=== PATIENT | female | born 1975 | race Two or more races ===

== ENCOUNTER 2017-12-13 14:22 | Emergency (ER) | payer MEDICAID ==
[~2017-12-13] VITALS: Ht 167.6 cm; Wt 104.8 kg
[~2017-12-13 14:22] MED LIST: ACET-3017 PO; ALPR-429 PO; AMOX-362 PO; AMOX-559 PO; AMOX500T10 PO; BISM262O24 PO; GABA-549 PO; HYDR-385 PO; HYDR-4309 PO; IBUP-1671 PO; LISI20TA29 PO; LOPE2CAP15; LOR5/325 PO; METF-420 PO; METR-1 PO; OMEP-125 PO; ONDA4TAB97 PO; OXYC-373 PO; PANT40TA65 PO; PARO-243 PO; SUCR1TAB85 PO; SULF-198 PO; TETR-30 PO; TRAM-420 PO; ZOLP-350 PO; [UNRECOGNIZED DRUG - CODE] PO
[2017-12-13] MEDS ORDERED: FLUO-202 PO (14:28)
[2017-12-13 14:29] VITALS: BP 126/68
--- NOTE | 2017-12-13 15:03 | ER Report ---
History and Physical Time Seen By MD: 14:35 Hx. of Stated Complaint: POSSIBLE STAPH INFECTION UNDER LEFT ARM. PREVIOUS SKIN INFECTIONS ON BREAST AND LABIA. HPI/ROS CHIEF COMPLAINT: Abscess HISTORY OF PRESENT ILLNESS: This is a 42-year-old female who presents to the emergency department for an abscess. Patient states that about 2 days ago she noticed she was developing a bump in her left armpit. The left axilla is very painful red and has a "pustule on top" patient states she's had abscesses in the past and this feels very similar to what she's had in the past patient is here for evaluation and I&D of the abscess. Patient denies aches, chills, fevers , nausea, vomiting or diarrhea. REVIEW OF SYSTEMS: Respiratory: No cough, no dyspnea. Cardiovascular: No chest pain, no palpitations. Gastrointestinal: No vomiting, no abdominal pain. Musculoskeletal: No back pain. Integumentary: As above. Allergies: Coded Allergies: No Known Drug Allergies (Unverified , 12/13/17) Home Meds Active Scripts Hydrocodone Bit/Acetaminophen (NORCO 5-325 TABLET) 1 Each Tablet, 1 EACH PO Q4- 6H Y for PAIN, #10 TAB Prov:NELDA MONROE ELIGIBILITY CONSULTANT-BC 12/13/17 Sulfamethoxazole/Trimet 800-160 Mg Tab (BACTRIM DS TABLET) 1 Each Tablet, 1 TAB PO Q12H for 10 Days, #20 TAB Prov:NELDA MONROE ELIGIBILITY CONSULTANT-BC 12/13/17 Pantoprazole Sodium (PANTOPRAZOLE SODIUM) 40 Mg Tablet.dr, 40 MG PO QDAY for 30 Days, #30 TAB.SR Prov:JOSÉ LUIS RODRIGUEZ MD 06/09/17 Alprazolam (XANAX) 0.5 Mg Tablet, 1 TAB PO TID for swelling, #12 TAB 0 Refills Prov:JOSÉ LUIS RODRIGUEZ MD 04/06/17 Reported Medications Fluoxetine Hcl (PROZAC) 20 Mg Capsule, 30 MG PO QDAY, CAPSULE 12/13/17 Metformin Hcl (METFORMIN HCL) 1,000 Mg Tablet, 1 TAB PO BID, TAB 04/17/17 Discontinued Scripts Acetaminophen With Codeine # 3 (TYLENOL WITH CODEINE #3 TABLET) 1 Each Tablet, 1 EACH PO Q4H Y for PAIN, #8 TAB 0 Refills Prov:ROB VIDAL MD 10/03/17 Sulfamethoxazole/Trimet 800-160 Mg Tab (BACTRIM DS TABLET) 1 Each Tablet, 1 TAB PO Q12H for 7 Days, #14 TAB 0 Refills Prov:ROB VIDAL MD 10/03/17 Ondansetron Hcl (ZOFRAN) 4 Mg Tablet, 4 MG PO Q8H for Nausea, #15 TAB 0 Refills Prov:JOSÉ LUIS RODRIGUEZ MD 06/09/17 Past Medical/Surgical History Patient has a past medical and surgical history of hypertension, ulcers, H. pylori, diabetes type II, multiple MRSA infections, anxiety, partial hysterectomy, appendectomy. Reviewed Nurses Notes: Yes Smoking Status: Former Smoker Hx Substance Use Disorder: No Hx Alcohol Use: No Constitutional Vital Sign - Last 24 Hours 12/13/17 14:29 Temp 98.4 Pulse 90 Resp 12 B/P (MAP) 126/68 Pulse Ox 95 O2 Delivery Room Air Physical Exam General Appearance: The patient is alert, has no immediate need for airway protection and no current signs of toxicity. Eyes: Pupils equal and round no injection. Respiratory: Chest is non tender, lungs are clear to auscultation. Cardiac: regular rate and rhythm, no murmurs, clicks or rubs. Gastrointestinal: Abdomen is soft and non tender, no masses, bowel sounds normal. Musculoskeletal: Neck: Neck is supple and non tender. Extremities have full range of motion and are non tender. Skin: Left axilla abscess. Erythema and induration with white pustule in the center. DIFFERENTIAL DIAGNOSIS: After history and physical exam differential diagnosis was considered for abscess. Medical Decision Making ED Course/Re-evaluation ED Course Patient was admitted to a room. History and physical were obtained. Differential diagnoses were considered. Upon examination of the patient's it does appear that she has an abscess to her left axilla. I&D was performed as noted below. The wound was packed. Patient was also started on Bactrim. Patient is supposed to follow-up with her primary care right her in 2-3 days for evaluation of the wound and remove the packing. Patient is also encouraged to return to emergency department for any other concerns or worsening symptoms. A wound culture was collected and sent of lab. Patient had no other questions or concerns at this time and was discharged home. Procedure: Abscess drainage. The patient's abscess was located on the left axilla. I obtained verbal consent from the patient to drain the abscess who was informed about the possibility of bleeding and pain. The abscess was incised with a scalpel and a moderate amount of purulent drainage was expressed. I irrigated the wound and placed some packing. The patient tolerated the procedure well. The procedure was performed by myself. Decision to Disposition Date: Dec 13, 2017 Decision to Disposition Time: 15:05 Depart Departure Latest Vital Signs Vital Signs Date Time Temp Pulse Resp B/P (MAP) Pulse Ox O2 Delivery O2 Flow Rate FiO2 12/13/17 14:29 98.4 90 12 126/68 95 Room Air Impression: Primary Impression: Axillary abscess Condition: Improved Disposition: HOME OR SELF-CARE New Scripts Hydrocodone Bit/Acetaminophen (NORCO 5-325 TABLET) 1 Each Tablet 1 EACH PO Q4-6H Y for PAIN, #10 TAB Prov: NELDA MONROE- 12/13/17 Sulfamethoxazole/Trimet 800-160 Mg Tab (BACTRIM DS TABLET) 1 Each Tablet 1 TAB PO Q12H for 10 Days, #20 TAB Prov: NELDA MONROE- 12/13/17 Patient Instructions: Abscess (ED) Additional Instructions: Drink plenty of fluid. Get plenty of rest. You must follow up with your provider within 2-4 days for reevaluation of the wound and packing removal. Take the antibiotics as prescribed. Take the pain medications as prescribed, no driving or drinking alcohol while taking pain medications. May return to the ED for worsening symptoms. NELDA MONROE-BC Dec 13, 2017 15:03
[2017-12-13] MEDS ORDERED: HYDR-4309 PO (15:08)
[2017-12-13] MEDS ORDERED: SULF-198 PO (15:08)
== END 2017-12-13 15:19 | disposition home or self-care (01) ==
LOC: ER 14:32
DX: L02.412 Cutaneous abscess of left axilla (principal)
CPT/HCPCS: 87070; 87077; 87186; 99282

== ENCOUNTER 2018-06-02 22:20 | Emergency (ER) | payer MEDICAID ==
[~2018-06-02 22:20] MED LIST changes: +FLUO-202 PO; -METF-420 PO; +METF-421 PO; -TETR-30 PO; +TETR500C2 PO
[2018-06-02] MEDS ORDERED: LISI-362 PO (22:25)
--- NOTE | 2018-06-02 22:33 | ER Report ---
History and Physical Time Seen By MD: 22:33 Hx. of Stated Complaint: pt reports L lower dental pain that started tonight HPI/ROS CHIEF COMPLAINT: dental pain HISTORY OF PRESENT ILLNESS: This is a 42 year old female. She is having some dental pain. Broken tooth lower left 2nd incisor, now with swelling in the gums and lip with pain shooting along jaw. Severe, not controlled by Ibuprofen, Tylenol, or oral numbing medications. Does not have a dentist here and cannot afford to see one here in [place]. Is looking into getting into a dentist with a sliding scale fee scale. Allergies: Coded Allergies: No Known Drug Allergies (Unverified , 06/02/18) Home Meds Active Scripts Hydrocodone Bit/Acetaminophen (HYDROCODON-ACETAMINOPHEN 5-325) 1 Each Tablet, 1 EACH PO Q4H Y for PAIN, #8 TAB 0 Refills Prov:ROB VIDAL MD 06/02/18 Amoxicillin (AMOXICILLIN) 500 Mg Capsule, 1 CAP PO Q8H, #30 CAPSULE 0 Refills Prov:ROB VIDAL MD 06/02/18 Alprazolam (XANAX) 0.5 Mg Tablet, 1 TAB PO TID for swelling, #12 TAB 0 Refills Prov:JOSÉ LUIS RODRIGUEZ MD 04/06/17 Reported Medications Lisinopril (LISINOPRIL) 10 Mg Tablet, 10 MG PO QDAY, TAB 06/02/18 Metformin Hcl (METFORMIN HCL) 1,000 Mg Tablet, 1 TAB PO BID, TAB 04/17/17 Discontinued Reported Medications Fluoxetine Hcl (PROZAC) 20 Mg Capsule, 30 MG PO QDAY, CAPSULE 12/13/17 Discontinued Scripts Hydrocodone Bit/Acetaminophen (NORCO 5-325 TABLET) 1 Each Tablet, 1 EACH PO Q4- 6H Y for PAIN, #10 TAB Prov:NELDA MONROE SMALL ANIMAL VETERINARIAN-BC 12/13/17 Sulfamethoxazole/Trimet 800-160 Mg Tab (BACTRIM DS TABLET) 1 Each Tablet, 1 TAB PO Q12H for 10 Days, #20 TAB Prov:NELDA MONROE SMALL ANIMAL VETERINARIAN-BC 12/13/17 Pantoprazole Sodium (PANTOPRAZOLE SODIUM) 40 Mg Tablet.dr, 40 MG PO QDAY for 30 Days, #30 TAB.SR Prov:JOSÉ LUIS RODRIGUEZ MD 06/09/17 Reviewed Nurses Notes: Yes Smoking Status: Former Smoker Hx Substance Use Disorder: No Hx Alcohol Use: No Constitutional Vital Sign - Last 24 Hours 06/02/18 06/02/18 22:20 22:52 Temp 97.8 Pulse 99 96 Resp 16 16 B/P (MAP) 147/76 134/67 (89) Pulse Ox 95 91 O2 Delivery Room Air Room Air Physical Exam General: Alert, tearful because of pain. ENT: Broken 2nd left lower incisor. Mild redness of the gums around this area. No abscess or drainage noted. Tender to percussion. Otherwise oropharynx and oral mucosa normal. Medical Decision Making ED Course/Re-evaluation ED Course Amoxicillin and Lortab prescribed and take home packs provided for tonight. Recommended to make sure and follow-up with a dentist for definitive care. Decision to Disposition Date: Jun 02, 2018 Decision to Disposition Time: 22:44 Depart Departure Latest Vital Signs Vital Signs Date Time Temp Pulse Resp B/P (MAP) Pulse Ox O2 Delivery O2 Flow Rate FiO2 06/02/18 22:52 96 16 134/67 (89) 91 Room Air 06/02/18 22:20 97.8 Impression: Primary Impression: Pain, dental Condition: Improved Disposition: HOME OR SELF-CARE New Scripts Hydrocodone Bit/Acetaminophen (HYDROCODON-ACETAMINOPHEN 5-325) 1 Each Tablet 1 EACH PO Q4H Y for PAIN, #8 TAB 0 Refills Prov: ROB VIDAL MD 06/02/18 Amoxicillin (AMOXICILLIN) 500 Mg Capsule 1 CAP PO Q8H, #30 CAPSULE 0 Refills Prov: ROB VIDAL MD 06/02/18 Patient Instructions: Toothache (ED) Additional Instructions: Keep using Ibuprofen and the oragel for pain. Take Lortab 5/325, one every 4 hours as needed for severe pain. Take Amoxicillin 500mg three times a day for 10 days. Follow-up with a Dentist on Monday for definitive care. ROB VIDAL MD Jun 02, 2018 22:33
[2018-06-02] MEDS ORDERED: ACET/HYDROC 5/325MG TH ER ONLY 2 TAB/BOTTLE PO ONE (22:45)
[2018-06-02] MEDS ORDERED: AMOX-362 PO (22:45)
[2018-06-02] MEDS ORDERED: AMOXICILLIN 500 MG CAP PO ONE (22:45)
[2018-06-02] MEDS ORDERED: AMOXICILLIN 250 MG PO ONE (22:45)
[2018-06-02] MEDS ORDERED: LOR5/325 PO (22:45)
[2018-06-02 22:52] VITALS: BP 134/67
== END 2018-06-02 23:00 | disposition home or self-care (01) ==
LOC: ER 23:00
DX: K08.89 Other specified disorders of teeth and supporting structures (principal); Z87.891 Personal history of nicotine dependence
CPT/HCPCS: 99283

== ENCOUNTER 2018-06-03 06:51 | Inpatient (IN) | payer MEDICAID ==
[~2018-06-03] VITALS: Ht 167.6 cm; Wt 110.0 kg
[~2018-06-03 06:51] MED LIST changes: +LISI-362 PO
[2018-06-03] MEDS ORDERED: MORPHINE 4 MG/ML SDV IVP ONE ×2 (07:15→09:35)
[2018-06-03] MEDS ORDERED: AMPICILLIN/SULBACT (*) 3 GM VL 3 GM in NS(*) 0.9% 100 ML BAG 100 ML IVPB ONE (07:15)
[2018-06-03] MEDS ORDERED: IOPAMIDOL 76% 100 ML INFUS BTL 100 ML ONE (07:28)
--- NOTE | 2018-06-03 07:44 | ER Report ---
History and Physical Time Seen By MD: 07:10 Hx. of Stated Complaint: patient has a infected tooth/facial swelling; states pain is out of control HPI/ROS CHIEF COMPLAINT: facial swelling HISTORY OF PRESENT ILLNESS: Pt has had facial swelling and pain that she felt arose from fractured l mandibular incisor. Was seen here last night; since d/c has had increasing pain, swelling, and difficulty opening her mouth. C/o nausea , but no fevers, chills, sob, cp, ap, le edema. Is s/p hysterectomy REVIEW OF SYSTEMS: Constitutional: No fever, no chills. Eyes: No discharge. ENT: L facial pain/swelling that extends to l neck Cardiovascular: No chest pain, no palpitations. Respiratory: No cough, no shortness of breath. Gastrointestinal: No abdominal pain, no vomiting. Genitourinary: No hematuria. Musculoskeletal: No back pain. Skin: No rashes. Neurological: No headache. Remainder of the 14 system rev: Yes Allergies: Coded Allergies: No Known Drug Allergies (Unverified , 06/02/18) Home Meds Active Scripts Hydrocodone Bit/Acetaminophen (HYDROCODON-ACETAMINOPHEN 5-325) 1 Each Tablet, 1 EACH PO Q4H Y for PAIN, #8 TAB 0 Refills Prov:ROB VIDAL MD 06/02/18 Amoxicillin (AMOXICILLIN) 500 Mg Capsule, 1 CAP PO Q8H, #30 CAPSULE 0 Refills Prov:ROB VIDAL MD 06/02/18 Alprazolam (XANAX) 0.5 Mg Tablet, 1 TAB PO TID for swelling, #12 TAB 0 Refills Prov:JOSÉ LUIS RODRIGUEZ MD 04/06/17 Reported Medications Lisinopril (LISINOPRIL) 10 Mg Tablet, 10 MG PO QDAY, TAB 06/02/18 Metformin Hcl (METFORMIN HCL) 1,000 Mg Tablet, 1 TAB PO BID, TAB 04/17/17 Discontinued Reported Medications Fluoxetine Hcl (PROZAC) 20 Mg Capsule, 30 MG PO QDAY, CAPSULE 12/13/17 Discontinued Scripts Hydrocodone Bit/Acetaminophen (NORCO 5-325 TABLET) 1 Each Tablet, 1 EACH PO Q4- 6H Y for PAIN, #10 TAB Prov:NELDA MONROE SPIRITUAL MINISTER-BC 12/13/17 Sulfamethoxazole/Trimet 800-160 Mg Tab (BACTRIM DS TABLET) 1 Each Tablet, 1 TAB PO Q12H for 10 Days, #20 TAB Prov:LUCIOPACONELDA ARELLANO Forrest SPIRITUAL MINISTER-BC 12/13/17 Pantoprazole Sodium (PANTOPRAZOLE SODIUM) 40 Mg Tablet., 40 MG PO QDAY for 30 Days, #30 TAB.SR Prov:JOSÉ LUIS RODRIGUEZ MD 06/09/17 Past Medical/Surgical History DM, HTN Hx Smoking: No Smoking Status: Former Smoker Hx Substance Use Disorder: No Hx Alcohol Use: No Constitutional Vital Sign - Last 24 Hours 06/03/18 06:58 Temp 97.8 Pulse 93 Resp 17 B/P (MAP) 143/92 Pulse Ox 96 O2 Delivery Room Air Physical Exam General Appearance: [The patient is alert, has no immediate need for airway protection and no signs of toxicity Pupils equal and round no pallor or injection. ENT, Mouth: Mucous membranes are moist. There is no ttp on percussion of dentition and no palpable abscess, however pt has edema, ttp over l base of mandible, extending to l submandibular and l proximal neck. No parotid ttp, no fluctuance. Post pharynx wnl Respiratory: There are no retractions, lungs are clear to auscultation. Cardiovascular: Regular rate and rhythm. Gastrointestinal: Abdomen is soft and non tender, no masses, bowel sounds normal. Neurological: alert, oriented Skin: Warm and dry, no rashes. Musculoskeletal: no extremity edema [DIFFERENTIAL DIAGNOSIS: After history and physical exam differential diagnosis was considered for cellulitis, abscess, demi's angina, ij thrombophlebitis or other emergent etiology Medical Decision Making Data Points Result Diagram: 06/03/18 0739 06/03/18 0739 Laboratory Hematology Test 06/03/18 07:39 Red Blood Count 4.90 M/uL (4.17-5.56) Mean Corpuscular Volume 88.8 fL (80.0-96.0) Mean Corpuscular Hemoglobin 30.5 pg (26.0-33.0) Mean Corpuscular Hemoglobin Concent 34.3 g/dL (32.0-36.0) Red Cell Distribution Width 13.1 % (11.5-14.5) Mean Platelet Volume 9.9 fL (7.2-11.1) Neutrophils (%) (Auto) 69.4 % (39.4-72.5) Lymphocytes (%) (Auto) 18.2 % (17.6-49.6) Monocytes (%) (Auto) 9.7 % (4.1-12.4) Eosinophils (%) (Auto) 2.2 % (0.4-6.7) Basophils (%) (Auto) 0.5 % (0.3-1.4) Nucleated RBC Relative Count (auto) 0.0 /100WBC Neutrophils # (Auto) 10.0 K/uL (2.0-7.4) Lymphocytes # (Auto) 2.6 K/uL (1.3-3.6) Monocytes # (Auto) 1.4 K/uL (0.3-1.0) Eosinophils # (Auto) 0.3 K/uL (0.0-0.5) Basophils # (Auto) 0.1 K/uL (0.0-0.1) Nucleated RBC Absolute Count (auto) 0.01 K/uL Sodium Level 139 mmol/L (137-145) Potassium Level 4.3 mmol/L (3.5-5.0) Chloride Level 105 mmol/L (98-107) Carbon Dioxide Level 22 mmol/L (22-31) Blood Urea Nitrogen 15 mg/dl (7-18) Creatinine 0.50 mg/dl (0.52-1.04) Glomerular Filtration Rate Calc > 60.0 Random Glucose 222 mg/dl (75-110) Calcium Level 9.0 mg/dl (8.4-10.2) Chemistry Test 06/03/18 07:39 White Blood Count 14.4 k/uL (4.5-11.0) Red Blood Count 4.90 M/uL (4.17-5.56) Hemoglobin 14.9 g/dL (12.0-16.0) Hematocrit 43.5 % (34.0-47.0) Mean Corpuscular Volume 88.8 fL (80.0-96.0) Mean Corpuscular Hemoglobin 30.5 pg (26.0-33.0) Mean Corpuscular Hemoglobin Concent 34.3 g/dL (32.0-36.0) Red Cell Distribution Width 13.1 % (11.5-14.5) Platelet Count 108 K/uL (150-450) Mean Platelet Volume 9.9 fL (7.2-11.1) Neutrophils (%) (Auto) 69.4 % (39.4-72.5) Lymphocytes (%) (Auto) 18.2 % (17.6-49.6) Monocytes (%) (Auto) 9.7 % (4.1-12.4) Eosinophils (%) (Auto) 2.2 % (0.4-6.7) Basophils (%) (Auto) 0.5 % (0.3-1.4) Nucleated RBC Relative Count (auto) 0.0 /100WBC Neutrophils # (Auto) 10.0 K/uL (2.0-7.4) Lymphocytes # (Auto) 2.6 K/uL (1.3-3.6) Monocytes # (Auto) 1.4 K/uL (0.3-1.0) Eosinophils # (Auto) 0.3 K/uL (0.0-0.5) Basophils # (Auto) 0.1 K/uL (0.0-0.1) Nucleated RBC Absolute Count (auto) 0.01 K/uL Glomerular Filtration Rate Calc > 60.0 Calcium Level 9.0 mg/dl (8.4-10.2) ED Course/Re-evaluation ED Course Pt returns with c/o dental pain and swelling; ed evla to r/o complication including demi's angina, abscess, deep space infection or other emergent etiology CT shows cellulitis without abscess. Upon reassessment, after iv abx, pt not worse but without improvement; I offered obs v d/c; pt more comfortable with obs admission for iv abx and reassessments. HD stable upon admission. Decision to Disposition Date: Jun 03, 2018 Decision to Disposition Time: 09:40 Depart Departure Latest Vital Signs Vital Signs Date Time Temp Pulse Resp B/P (MAP) Pulse Ox O2 Delivery O2 Flow Rate FiO2 06/03/18 06:58 97.8 93 17 143/92 96 Room Air Impression: Primary Impression: Facial cellulitis Condition: Condition Unchanged Disposition: Admitted from ER JOSÉ LUIS REHMAN MD Jun 03, 2018 07:44
[2018-06-03 07:50] LABS: PLATELET COUNT, AUTOMATED 108 K/uL (150-450)
--- NOTE | 2018-06-03 09:03 | RADIOLOGY IMAGING REPORT ---
FAC[place] [facility] [place] NAME: Peg Dixon : 1975 MR: [id number] V: [id number] EXAM DATE: ORDERING PHYSICIAN: JOSÉ LUIS REHMAN TECHNOLOGIST: Location: [facility] - [place] Patient: Peg Dixon : 1975 Visit/Account:[id number] Date of Sevice: 06/03/2018 NECK SOFT TISSUE W CONTRAST HISTORY: Swelling. Cellulitis. TECHNIQUE: Spiral scan was obtained from the hard palate through the upper chest with intravenous co ntrast. One of the following dose optimization techniques was utilized in the performance of this exa m: automated exposure control; adjustment of the mA and/or kv according to patient size; or use of it erative reconstruction technique. Specific details can be referenced in the facility's radiology CT e xam operational policy. Contrast: 75 cc of Isovue-370 COMPARISON STUDIES: None FINDINGS: Vessels: Negative Suprahyoid neck: Nasopharynx is normal. Oropharynx is normal. Parapharyngeal space is normal. Retro pharyngeal space is normal. Pharyngeal space is normal. Infrahyoid neck: Hypopharynx is normal. Larynx and airway are normal. Salivary glands: Normal Lymph nodes: Negative Thyroid gland: Negative Visualized orbits: Negative Sinuses and mastoids: Negative Visualized brain: Negative Upper chest: Negative Bones/soft tissues: Mild soft tissue swelling adjacent to the left mandible and mandibular apex with out fluid collection. Most of the Other findings: None significant IMPRESSION: 1. Findings consistent with cellulitis superficial to the apex of the mandible and left ramus without fluid collection. Report Dictated By: Esau Woodson MD at 06/03/2018 8:55 AM Report E-Signed By: Esau Woodson MD at 06/03/2018 8:59 AM WSN:[id number]
--- NOTE | 2018-06-03 09:03 | RADIOLOGY IMAGING REPORT ---
FACILITY: [facility] PATIENT NAME: Peg Dixon : 1975 MR: [id number] V: [id number] EXAM DATE: ORDERING PHYSICIAN: JOSÉ LUIS REHMAN TECHNOLOGIST: Location: [facility] - [place] Patient: Peg Dixon : 1975 Visit/Account:[id number] Date of Sevice: 06/03/2018 FACIAL BONES W CONTRAST HISTORY: Swelling. Cellulitis. COMPARISON STUDIES: none TECHNIQUE: Axial images were obtained from the superior aspect of the orbits through the inferior as pect of mandible with intravenous contrast. Coronal and sagittal reformatted images were obtained fro m the axial source data. One of the following dose optimization techniques was utilized in the perfor moncho of this exam: automated exposure control; adjustment of the mA and/or kv according to patient s ize; or use of iterative reconstruction technique. Specific details can be referenced in the facility 's radiology CT exam operational policy. CONTRAST: 75 cc of Isovue-370 FINDINGS: Soft Tissues: Soft tissue swelling adjacent to the mandibular apex and left ramus without fluid colle ction. Mandible / TMJ: Negative Maxilla / pterygoid plates: Negative Zygoma: Negative Orbits: Negative Nasal bones / nasal septum: Negative Sinuses: Negative Mastoids: Negative Visualized brain: Negative Cervical spine: Negative Other findings: None significant IMPRESSION: 1. Soft tissue swelling superficial to the mandibular apex and left ramus most consistent with cellul itis. No peripheral enhancing fluid collection indicate abscess. Report Dictated By: Esau Woodson MD at 06/03/2018 8:51 AM Report E-Signed By: Esau Woodson MD at 06/03/2018 8:59 AM WSN:[id number]
[2018-06-03 11:02] VITALS: BP 126/75
[2018-06-03] MEDS ORDERED: CLINDAMYCIN 600 MG/4 ML 600 MG in NS(*) 0.9% 100 ML BAG 100 ML IVPB SCH (11:20)
[2018-06-03] MEDS ORDERED: ACETAMINOPHEN 325 MG TAB PO PRN (11:30)
[2018-06-03] MEDS ORDERED: ONDANSETRON 4 MG/2 ML VIAL IVP PRN (11:30)
[2018-06-03] MEDS: CLINDAMYCIN(*) 600 MG/NS 50 ML 50 ML IVPB SCH ×2 (11:49→20:28)
[2018-06-03] MEDS: APAP/HYDROCODONE 325/5 TAB PO PRN ×3 (11:49→23:59)
[2018-06-03] MEDS: NS(*) 0.9% 1000 ML BAG 1,000 ML IV PRN (11:49)
[2018-06-03] MEDS: MORPHINE 2 MG/ML SYR IVP PRN ×3 (11:51→20:28)
[2018-06-03] MEDS: INSULIN HUM LISPRO 100 UN/ML 3 ML VIAL SUBQ PRN ×3 (11:53→21:42)
--- NOTE | 2018-06-03 11:57 | History & Physical ---
History of Present Illness Chief Complaint Tooth pain and face pain and swelling for 2 days. 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 She states that she has a broken lower incisor which has bothered her on and off for a while. Yesterday evening the pain in her tooth worsened and she was seen in ER and given Amoxil and Lortab. She had not yet filled the prescriptions, but woke this am feeling much worse with increased facial swelling and pain. She was seen in the ER again this am and CT of the face and neck did not show abscess, but did show cellulitis. Review of the EMR shows 2 previous cultures with Staph aureus when she has had cellulitis. Both times, the Staph was resistant to PCNs. The patient states her current pain and swelling is similar to a previous episode of facial cellulitis which at that time was unrelated to a dental infection. The patient states the pain in her face/jaw is fairly severe and she is unable to open her mouth fully. She denies fever or chills but does not feel well in general. She admits she has poor dentition but can not afford to see a dentist. History Problems: (1) Poor dentition Status: Chronic (2) PUD (peptic ulcer disease) Status: Resolved (3) HTN (hypertension) Status: Chronic (4) Anxiety and depression Status: Chronic (5) Type II diabetes mellitus Status: Chronic (6) Abscess of labia majora Status: Resolved (7) Axillary abscess Status: Resolved (8) Cellulitis and abscess of face Status: Resolved (9) Breast abscess of female Status: Resolved (10) H. pylori infection Status: Resolved (11) History of hysterectomy Status: Resolved (12) History of section Status: Resolved (13) History of appendectomy Status: Resolved (14) Hx of tonsillectomy Status: Resolved Home Meds Active Scripts Hydrocodone Bit/Acetaminophen (HYDROCODON-ACETAMINOPHEN 5-325) 1 Each Tablet, 1 EACH PO Q4H Y for PAIN, #8 TAB 0 Refills Prov:ROB VIDAL MD 06/02/18 Amoxicillin (AMOXICILLIN) 500 Mg Capsule, 1 CAP PO Q8H, #30 CAPSULE 0 Refills Prov:ROB VIDAL MD 06/02/18 Alprazolam (XANAX) 0.5 Mg Tablet, 1 TAB PO TID for swelling, #12 TAB 0 Refills Prov:JOSÉ LUIS RODRIGUEZ MD 04/06/17 Reported Medications Lisinopril (LISINOPRIL) 10 Mg Tablet, 10 MG PO QDAY, TAB 06/02/18 Metformin Hcl (METFORMIN HCL) 1,000 Mg Tablet, 1 TAB PO BID, TAB 04/17/17 Discontinued Reported Medications Fluoxetine Hcl (PROZAC) 20 Mg Capsule, 30 MG PO QDAY, CAPSULE 12/13/17 Discontinued Scripts Hydrocodone Bit/Acetaminophen (NORCO 5-325 TABLET) 1 Each Tablet, 1 EACH PO Q4- 6H Y for PAIN, #10 TAB Prov:NELDA MONROE SAGGER MAKER-BC 12/13/17 Sulfamethoxazole/Trimet 800-160 Mg Tab (BACTRIM DS TABLET) 1 Each Tablet, 1 TAB PO Q12H for 10 Days, #20 TAB Prov:NELDA MONROEP-BC 12/13/17 Pantoprazole Sodium (PANTOPRAZOLE SODIUM) 40 Mg Tablet.dr, 40 MG PO QDAY for 30 Days, #30 TAB.SR Prov:JOSÉ LUIS RODRIGUEZ MD 06/09/17 Allergies: Coded Allergies: No Known Drug Allergies (Unverified , 06/02/18) Patient History: Patient reports no known family medical history. Other Social/Family Hx The patient is . She works at [employer]. She lives in [place] with her 24 year old daughter. She has 3 younger children who live in [place]. Hx Smoking: No Smoking Status: Former Smoker Caffeine Intake: Coffee, Soda Caffeine/Cups Per Day: DAILY Hx Alcohol Use: No Hx Substance Use Disorder: No History of IV Drug Use: No Review of Systems All Systems Reviewed/Normal: Yes, Except as Noted Constitutional: No Fever, No Chills ENT: Other (Dental pain.) Psychiatric: Depression, Anxiety Other Facial pain and swelling. Exam Vital Signs Vital Signs Date Time Temp Pulse Resp B/P (MAP) Pulse Ox O2 Delivery O2 Flow Rate FiO2 06/03/18 11:02 98.3 87 16 126/75 (92) 98 Room Air General Appearance: Alert, Awake, No Acute Distress, Other (Obvious swelling of L face and midline face.) Neuro: No Gross deficits Eyes: PERRLA ENT: Other (Multiple missing teeth. Several broken teeth.) Cardiovascular: Regular Rate and Rhythm Respiratory: Clear to Auscultation GI: Abd Soft and Non-Tender Lymph: Cervical Nodes Benign, Other (Submental LN tender and swollen.) Extremities: Warm, Perfused Integumentary: Other (Tatoos.) Psych: Appropriate Mood & Affect Medical Decision Making Data Points Result Diagram: 06/03/18 0739 06/03/18 0739 EKG / Imaging Imaging FACILITY: [facility] [place] PATIENT NAME: Peg Dixon : 1975 MR: [id number] V: [id number] EXAM DATE: [id number] ORDERING PHYSICIAN: JOSÉ LUIS REHMAN TECHNOLOGIST: Location: [facility] [place] Patient: Peg Dixon : 1975 Visit/Account:[id number] Date of Sevice: 06/03/2018 FACIAL BONES W CONTRAST HISTORY: Swelling. Cellulitis. COMPARISON STUDIES: none TECHNIQUE: Axial images were obtained from the superior aspect of the orbits through the inferior aspect of mandible with intravenous contrast. Coronal and sagittal reformatted images were obtained from the axial source data. One of the following dose optimization techniques was utilized in the performance of this exam: automated exposure control; adjustment of the mA and/or kv according to patient size; or use of iterative reconstruction technique. Specific details can be referenced in the facility's radiology CT exam operational policy. CONTRAST: 75 cc of Isovue-370 FINDINGS: Soft Tissues: Soft tissue swelling adjacent to the mandibular apex and left ramus without fluid collection. Mandible / TMJ: Negative Maxilla / pterygoid plates: Negative Zygoma: Negative Orbits: Negative Nasal bones / nasal septum: Negative Sinuses: Negative Mastoids: Negative Visualized brain: Negative Cervical spine: Negative Other findings: None significant IMPRESSION: 1. Soft tissue swelling superficial to the mandibular apex and left ramus most consistent with cellulitis. No peripheral enhancing fluid collection indicate abscess. Report Dictated By: Esau Woodson MD at 06/03/2018 8:51 AM Report E-Signed By: Esau Woodson MD at 06/03/2018 8:59 AM WSN:[id number] FACILITY: [facility] [place] PATIENT NAME: Peg Dixon : 1975 MR: [id number] V: [id number] EXAM DATE: [id number] ORDERING PHYSICIAN: JOSÉ LUIS REHMAN TECHNOLOGIST: Location: [facility] [place] Patient: Peg Dixon : 1975 Visit/Account:[id number] Date of Sevice: 06/03/2018 NECK SOFT TISSUE W CONTRAST HISTORY: Swelling. Cellulitis. TECHNIQUE: Spiral scan was obtained from the hard palate through the upper chest with intravenous contrast. One of the following dose optimization techniques was utilized in the performance of this exam: automated exposure control; adjustment of the mA and/or kv according to patient size; or use of iterative reconstruction technique. Specific details can be referenced in the facility's radiology CT exam operational policy. Contrast: 75 cc of Isovue-370 COMPARISON STUDIES: None FINDINGS: Vessels: Negative Suprahyoid neck: Nasopharynx is normal. Oropharynx is normal. Parapharyngeal space is normal. Retropharyngeal space is normal. Pharyngeal space is normal. Infrahyoid neck: Hypopharynx is normal. Larynx and airway are normal. Salivary glands: Normal Lymph nodes: Negative Thyroid gland: Negative Visualized orbits: Negative Sinuses and mastoids: Negative Visualized brain: Negative Upper chest: Negative Bones/soft tissues: Mild soft tissue swelling adjacent to the left mandible and mandibular apex without fluid collection. Most of the Other findings: None significant IMPRESSION: 1. Findings consistent with cellulitis superficial to the apex of the mandible and left ramus without fluid collection. Report Dictated By: Esau Woodson MD at 06/03/2018 8:55 AM Report E-Signed By: Esau Woodson MD at 06/03/2018 8:59 AM WSN:[id number] Pre-Admit Course Medical Record Review: Yes Assessment and Plan Problems: (1) Facial cellulitis Status: Acute Assessment & Plan: She has had facial cellulitis in the past. She also has had tooth pain. Will start clindamycin to cover Staph aureus (see previous culture reports). Will place on Levaquin as well to cover a dental infection and also cover Staph. (2) Pain, dental Status: Acute Assessment & Plan: Poor dentition. No obvious abscess visible on exam. Teeth are not particularly tender. Unclear if there is current infection. Will cover for possible dental infection as the cause for her cellulitis. (3) HTN (hypertension) Status: Chronic Assessment & Plan: Continue lisinopril. (4) Type II diabetes mellitus Status: Chronic Assessment & Plan: Hold metformin due to CT with dye. SSI level 2. Glucose checks AC/HS. (5) Anxiety and depression Status: Chronic Assessment & Plan: Xanax ordered prn at HS as she takes it at home. Time Spent on Plan of Care: < 30 min Venous Thromboembolism VTE Risk Physician Assess for VTE Risk: Yes Patient's VTE Risk: Low VTE Diagnostic Test 2 Days Prior to Admit: No Antithrombotics Is Pt On Any Antithrombotics?: Yes Exam Sepsis Risk: No Definite Risk Problem Qualifiers (1) HTN (hypertension): Hypertension type: essential hypertension Qualified Codes: I10 - Essential ( primary) hypertension MITUL AIKEN MD Jun 03, 2018 11:57
[2018-06-03 11:58] VITALS: Ht 167.6 cm; Wt 110.0 kg
--- NOTE | 2018-06-03 12:10 | Medical Nutrition Therapy ---
Nutrition Anthropometrics Height (Inches): 66.00 Height (Calculated Centimeters: 167.623722 Weight (Pounds): 242 Weight (Calculated Kilograms): 110.025 Celestine Nutrition Score: Adequate Celestine Nutrition Risk Score: 20 Dietary Referral Nutrition Risk Factors: Nutrition Risk Comment: PAIN WITH CHEWING CURRENTLY Physical Findings Physical Appearance: Overweight BMI 25-29 Skin Appearance Skin Appearance: Edema Edema Location Modifier: Edema Location: Type of Edema: Degree of Edema: Gastrointestinal Symptoms GI Symtoms: Tube Present: Bowel Sounds: Recent Bowel Pattern: Stool Characteristics: Nutrition/Food History Non-compliant W/Diet Nutritional Diagnosis Nutritional Risk Acuity 2: Abcess/Non-Healing Wound Nutritional Risk Acuity 3: Morbid Obesity Past Medical History: HTN, T2DM, Anxiety Nutritional Acuity: 2-Moderate Nutrition Diagnosis: Increased Nutrient Needs Nutrition Etiology: Physiological Causes Nutrition Problem/Etiology/Sym: Increased Nutrient Needs (Protein) related to Increased demand for nutrient, e.g., wound healing, infection AEB diagnosis of facial cellulits. Energy Requirement: 2200 ([place] Adj REE X 1.5) Protein Requirement: 88 (Actual BW Kg X .8) Fluid Requirement: 2200 Diet Type: Diabetic Nutrition Intervention: Cont diet as ordered Nutrition Monitoring & Eval Nutrition Goals: Eat 50-100% Meal RD Patient Assessment Time: [address] Assessment Type: RD Assessment Patient Nutrition Acuity: 2-Moderate Follow Up Date: Jun 06, 2018 Nutritional Comment: 06/03 Pt admitted for Facial cellulitis. Class II obesity with BMI of 39.2. Glu 186. Lispro SSI. Usually takes metformin at home. Receiving Diabetes diet with no reports of intake at present. Follow intake, wt, labs, etc. -SACHA HUSAIN Jun 03, 2018 12:10
[2018-06-03] MEDS: LEVOFLOXACIN/D5W 750 MG/150 ML 150 ML IVPB SCH (13:25)
[2018-06-03 15:52] VITALS: BP 120/85
[2018-06-03] MEDS: ALPRAZolam 0.5 MG TAB PO PRN (18:05)
[2018-06-03 19:00] VITALS: BP 137/77
[2018-06-03 23:54] VITALS: BP 125/77
[2018-06-04] MEDS: MORPHINE 2 MG/ML SYR IVP PRN ×6 (00:23→21:46)
[2018-06-04] MEDS: CLINDAMYCIN(*) 600 MG/NS 50 ML 50 ML IVPB SCH ×3 (04:21→20:07)
[2018-06-04] MEDS: NS(*) 0.9% 1000 ML BAG 1,000 ML IV PRN (04:21)
[2018-06-04 04:33] VITALS: BP 117/72
[2018-06-04] MEDS: APAP/HYDROCODONE 325/5 TAB PO PRN ×3 (05:57→18:12)
[2018-06-04 08:29] VITALS: BP 134/81
[2018-06-04] MEDS: LISINOPRIL 10 MG TAB PO SCH (08:44)
[2018-06-04 08:58] LABS: PLATELET COUNT, AUTOMATED 91 K/uL (150-450)
[2018-06-04] MEDS ORDERED: ENOXAPARIN 40 MG/0.4ML SYR SC SCH (09:00)
--- NOTE | 2018-06-04 10:19 | Hospitalist Progress Note ---
Subjective Progress Notes Subjective She was admitted for cellulitis. She has complaints of facial pain. She had no acute events overnight. Patient Complains of: Cardiovascular: No: Chest Pain Respiratory: No: Shortness of Breath Physical Exam Vital Signs Date Time Temp Pulse Resp B/P (MAP) Pulse Ox O2 Delivery O2 Flow Rate FiO2 06/04/18 08:40 92 Room Air 06/04/18 08:29 98.3 92 16 134/81 (98) Intake and Output 06/05/18 01:00 Intake Total 1008 ml Balance 1008 ml Intake Oral 0 ml IV Total 1008 ml # Voids 3 General Appearance: Alert, Awake, No Acute Distress, Afebrile Neuro: No Gross deficits Cardiovascular: Regular Rate and Rhythm Respiratory: No Respiratory Distress, Clear to Auscultation GI: Soft and Non-Tender Extremities: Warm, Perfused Integumentary: Other (facial swelling noted to left mandible, no obvious abscess by palpation to chin or face) Psych: Alert & Oriented X3, Appropriate Mood & Affect Result Diagram: 06/04/1884506/04/1846 Assessment and Plan Problems: (1) Facial cellulitis Status: Acute Assessment & Plan: She has had facial cellulitis in the past. She also has tooth pain. Will start clindamycin to cover Staph aureus (see previous culture reports). Will place on Levaquin as well to cover a dental infection and also cover Staph. We will consult ENT today. (2) Pain, dental Status: Acute Assessment & Plan: Poor dentition. No obvious abscess visible on exam. Teeth are not particularly tender. Unclear if there is current infection. Will cover for possible dental infection as the cause for her cellulitis. (3) HTN (hypertension) Status: Chronic Assessment & Plan: Continue lisinopril. (4) Type II diabetes mellitus Status: Chronic Assessment & Plan: Hold metformin due to CT with dye. SSI level 2. Glucose checks AC/HS. (5) Anxiety and depression Status: Chronic Assessment & Plan: Xanax ordered prn at HS as she takes it at home. Exam Sepsis Risk: No Definite Risk Problem Qualifiers (1) HTN (hypertension): Hypertension type: essential hypertension Qualified Codes: I10 - Essential ( primary) hypertension FRANCES ALVA ATMOSPHERIC PHYSICIST Jun 04, 2018 10:19
--- NOTE | 2018-06-04 10:42 | Medical Nutrition Therapy ---
Nutrition Anthropometrics Height (Inches): 66.00 Height (Calculated Centimeters: 167.065605 Weight (Pounds): 242 Weight (Calculated Kilograms): 110.025 Celestine Nutrition Score: Probably Inadequate Celestine Nutrition Risk Score: 20 Dietary Referral Nutrition Risk Factors: Nutrition Risk Comment: PAIN WITH CHEWING CURRENTLY Nutritional Diagnosis Nutritional Risk Acuity 2: Abcess/Non-Healing Wound Nutritional Risk Acuity 3: Eat/Chew Problem, Morbid Obesity Past Medical History: HTN, T2DM, Anxiety Nutritional Acuity: 2-Moderate Nutrition Diagnosis: Increased Nutrient Needs Nutrition Etiology: Physiological Causes Nutrition Problem/Etiology/Sym: Increased Nutrient Needs (Protein) related to Increased demand for nutrient, e.g., wound healing, infection AEB diagnosis of facial cellulits. Energy Requirement: 2200 ([place] Adj REE X 1.5) Protein Requirement: 88 (Actual BW Kg X .8) Fluid Requirement: 2200 Diet Type: Diabetic Nutrition Intervention: Cont diet as ordered Additional Diet Restrictions: OFFER SF NUTR SUPPLMENT IF NO HIGH PROTEIN FOOD ORDERED Diet Comment To RSA: PROVIDE SOFT,[id number] FOODS Nutritional Education Nutrition Education Topic: Diabetic Nutrition Learning Readiness: Not Interested Teaching Methods: Discussion Teaching Recipient: Patient Nutrition Counseling: Pt states is comfortable with her current diabetic diet at home. Pt is not interested in additional education at this time. Nutrition Monitoring & Eval Nutrition Goals: Eat 75-100% Meal Nutrition Follow-Up: Fair Intake RD Patient Assessment Time: [address] Assessment Type: RD Re-Assessment Patient Nutrition Acuity: 2-Moderate Follow Up Date: Jun 08, 2018 Nutritional Comment: 06/03 Pt admitted for Facial cellulitis. Class II obesity with BMI of 39.2. Glu 186. Lispro SSI. Usually takes metformin at home. Receiving Diabetes diet with no reports of intake at present. Follow intake, wt, labs, etc. -DRT 06/04 Pt states difficulities chewling with facial cellulities and left back dentures at home. Will provide soft foods. Encouraged pt to consume a high protein food at meals. Will offer nutr supplment if no high protein food ordered. BG cont elevated up to 200's. Will cont to monitor and encourage healthy intake. JESSIKA LUND Jun 04, 2018 10:41
[2018-06-04 12:02] VITALS: BP 137/87
[2018-06-04] MEDS: INSULIN HUM LISPRO 100 UN/ML 3 ML VIAL SUBQ PRN ×2 (12:15→20:07)
[2018-06-04] MEDS: LEVOFLOXACIN/D5W 750 MG/150 ML 150 ML IVPB SCH (13:09)
[2018-06-04 15:49] VITALS: BP 116/73
[2018-06-04 19:21] VITALS: BP 111/72
--- NOTE | 2018-06-04 20:14 | CONSULTATION ---
EVENT DATE: June 04, 2018 REASON FOR CONSULTATION Facial cellulitis. CONSULTING PHYSICIAN Catarina on the hospitalist service. HISTORY OF PRESENT ILLNESS This is a 42-year-old woman with a history of previous MRSA cellulitis episodes. The patient has known poor dentition and has been complaining of some pain associated with a fractured left mandibular tooth. The patient was seen two days ago initially with this concern and was prescribed some pain medication and amoxicillin which she did not fill. She was then seen back in the emergency department with facial swelling. A CT performed there demonstrated swelling in the soft tissue overlying her left mandible consistent with a cellulitis. The patient was admitted to the hospitalist service and is currently receiving IV clindamycin and Levaquin. By report she is having some improvement of her swelling over the past 24 hours. CURRENT MEDICATIONS 1. Lisinopril. 2. Levaquin. 3. Clindamycin. 4. Alprazolam. 5. Insulin. ALLERGIES No known drug allergies. PAST MEDICAL HISTORY 1. Hypertension. 2. Depression. 3. Type 2 diabetes mellitus. PERSONAL AND SOCIAL HISTORY The patient is a former tobacco smoker. She denies alcohol. FAMILY HISTORY Noncontributory. REVIEW OF SYSTEMS As above. PHYSICAL EXAMINATION VITAL SIGNS: Temperature 98.0, blood pressure 137/87, pulse 97, respiratory rate 18, pulse oximetry 93% on room air. GENERAL: Obese, in no apparent distress, tolerating her oral secretions. HEENT: Normocephalic, atraumatic No gross lesions or scars. External ears unremarkable. Sclerae are white, conjunctivae are pink. Extraocular movements intact. External nose unremarkable. Midline septum. Moist mucous membranes. Poor dentition. No trismus,moist mucous membranes. NECK: Submental edema. Firm. Somewhat tender to palpation. No fluctuance. No overlying erythema. No palpable lymphadenopathy. NEUROLOGIC: Alert and oriented. Cranial nerves II through XII grossly intact. ASSESSMENT Type 2 diabetic with history of methicillin-resistant Staphylococcus aureus cellulitis with facial cellulitis. PLAN The CT scan demonstrates no fluid collection amenable to surgical drainage. By report the patient seems to be improving on IV Levaquin and clindamycin. I would continue this for now for a total of 48-72 hours and discharge home on oral antibiotics should she continue to improve. If the patient clinically worsens I would recommend re-imaging the patient. Please feel free to re- consult me in that event. Please call with any further questions or concerns. ] MTDD
[2018-06-04] MEDS: ALPRAZolam 0.5 MG TAB PO PRN (22:10)
[2018-06-04 23:11] VITALS: BP 114/78
[2018-06-05] MEDS: APAP/HYDROCODONE 325/5 TAB PO PRN ×4 (00:20→19:45)
[2018-06-05] MEDS: MORPHINE 2 MG/ML SYR IVP PRN (01:44)
[2018-06-05] MEDS: CLINDAMYCIN(*) 600 MG/NS 50 ML 50 ML IVPB SCH ×3 (04:45→21:06)
[2018-06-05] MEDS: LISINOPRIL 10 MG TAB PO SCH (08:45)
[2018-06-05 08:51] LABS: PLATELET COUNT, AUTOMATED 213 K/uL (150-450)
--- NOTE | 2018-06-05 10:21 | Hospitalist Progress Note ---
Subjective Progress Notes Subjective She reports some improvement in pain and swelling. She had no acute events overnight. Patient Complains of: Cardiovascular: No: Chest Pain Respiratory: No: Shortness of Breath Physical Exam Vital Signs Date Time Temp Pulse Resp B/P (MAP) Pulse Ox O2 Delivery O2 Flow Rate FiO2 06/05/18 09:03 93 Room Air 06/04/18 23:11 98.2 91 16 114/78 (90) Intake and Output 06/06/18 01:00 Intake Total 860 ml Balance 860 ml Intake Oral 860 ml General Appearance: Alert, Awake, No Acute Distress, Afebrile Neuro: No Gross deficits ENT: Other (swelling to front of lower gum, no drainage noted) Neck: Other (swelling decreasing, some redness noted to upper neck skin) Respiratory: No Respiratory Distress, Clear to Auscultation GI: Soft and Non-Tender Psych: Alert & Oriented X3, Appropriate Mood & Affect Result Diagram: 06/05/18 0843 06/05/18 0843 Assessment and Plan Problems: (1) Facial cellulitis Status: Acute Assessment & Plan: She has had facial cellulitis in the past. She also has tooth pain. She will continue clindamycin to cover Staph aureus (see previous culture reports). She will continue Levaquin as well to cover a dental infection and also cover Staph. WBC count decreased to 9.9 today from 14.4 upon admission. She will be switched to oral antibiotics tomorrow. (2) Pain, dental Status: Acute Assessment & Plan: Poor dentition. No obvious abscess visible on exam. Teeth are not particularly tender. Unclear if there is current infection. Will cover for possible dental infection as the cause for her cellulitis. (3) HTN (hypertension) Status: Chronic Assessment & Plan: Continue lisinopril. (4) Type II diabetes mellitus Status: Chronic Assessment & Plan: Hold metformin due to CT with dye. SSI level 2. Glucose checks AC/HS. (5) Anxiety and depression Status: Chronic Assessment & Plan: Xanax ordered prn at HS as she takes it at home. Exam Sepsis Risk: No Definite Risk Problem Qualifiers (1) HTN (hypertension): Hypertension type: essential hypertension Qualified Codes: I10 - Essential ( primary) hypertension FRANCES ALVA MEDICAL GENETICS DIRECTOR Jun 05, 2018 10:21
[2018-06-05 11:38] VITALS: BP 115/71
[2018-06-05] MEDS: LEVOFLOXACIN/D5W 750 MG/150 ML 150 ML IVPB SCH (13:31)
--- NOTE | 2018-06-05 15:16 | Antimicrobial Stewardship ---
Antimicrobial Stewardship MD Service: Hospitalist Indications: Cellulitis (Facial) Antimicrobial Used 06/03/18 Ampicillin/Sulbactam IV x one dose. Clindamycin and Levofloxacin IV Start Date: Jun 03, 2018 Height (Calculated Centimeters: 167.510824 Weight (Calculated Kilograms): 110.025 Culture Results: N/A Patient Improving Clinically: Yes Tolerating Oral Fluids: Yes Able to Absorb PO Meds: Yes Taking Other Meds PO: Yes Received >24 hr of IV Abx: Yes Afebrile > 24 hrs: Yes Heart Rate < or = 90 bpm: Yes RR < or = 20 bpm: Yes SBP > or = 90 mm Hg: Yes Improving WBC and Differential: Yes Improving Signs and Symptoms: Yes Hemodynamically Stable: Yes Eligable for PO Conversion: Yes (Hospitalist plan for IV to PO conversion on 06/06/18.) Comments Patient with history of MRSA in Axillary and Breast Wounds. YORDAN SHARP Jun 05, 2018 15:16
[2018-06-05 15:40] VITALS: BP 120/72
[2018-06-05 19:34] VITALS: BP 120/74
[2018-06-05] MEDS: INSULIN HUM LISPRO 100 UN/ML 3 ML VIAL SUBQ PRN (19:46)
[2018-06-05] MEDS: ALPRAZolam 0.5 MG TAB PO PRN (21:56)
[2018-06-05 23:15] VITALS: BP 122/78
[2018-06-06] MEDS: APAP/HYDROCODONE 325/5 TAB PO PRN ×2 (02:03→08:30)
[2018-06-06 03:13] VITALS: BP 102/54
[2018-06-06] MEDS: CLINDAMYCIN(*) 600 MG/NS 50 ML 50 ML IVPB SCH (04:50)
[2018-06-06 07:41] VITALS: BP 93/60
[2018-06-06] MEDS ORDERED: metFORMIN HCL 500 MG TAB PO SCH (09:00)
[2018-06-06] MEDS: LISINOPRIL 10 MG TAB PO SCH (09:00)
[2018-06-06] MEDS ORDERED: LOR5/325 PO (09:58)
[2018-06-06] MEDS ORDERED: CLIN300C99 PO ×2 (09:58→11:31)
[2018-06-06] MEDS ORDERED: LEVO750T44 PO ×2 (09:58→11:31)
--- NOTE | 2018-06-06 10:14 | Hospitalist Depart ---
Discharge Summary Reason for Hosp/Final Diag: (1) Facial cellulitis Status: Acute Hospital Course & Plan: She has had facial cellulitis in the past. She also has tooth pain. She will continue clindamycin to cover Staph aureus (see previous culture reports). She will continue Levaquin as well to cover a dental infection and also cover Staph. WBC count decreased to 9.9 06/05 from 14.4 upon admission. She will be switched to oral antibiotics today. She should continue for another 7 days for 10 days of antibiotic therapy. (2) Pain, dental Status: Acute Hospital Course & Plan: Poor dentition. No obvious abscess visible on exam. Teeth are not particularly tender. Unclear if there is current infection. She was covered with antibiotics for possible dental infection as the cause for her cellulitis. She was given references for dental providers. (3) HTN (hypertension) Status: Chronic Hospital Course & Plan: Continue lisinopril. (4) Type II diabetes mellitus Status: Chronic Hospital Course & Plan: She was restarted on her Metformin this morning. It was held through admission secondary to CT contrast. (5) Anxiety and depression Status: Chronic Hospital Course & Plan: Xanax ordered prn at as she takes it at home. Departure Latest Vital Signs Vital Signs 06/06/18 06/06/18 03:13 07:41 Temp 97.4 Pulse 73 Resp 16 B/P (MAP) 93/60 (71) Pulse Ox 93 O2 Delivery Room Air Weight (Pounds): 242 Weight (Ounces): 9.0 Result Diagram: 06/05/1843 06/05/1843 Condition: Improved Discharge: Home, Self Care Discharge Instructions Home Meds Active Scripts Levofloxacin 750 Mg Tab (LEVAQUIN 750 MG TAB) 750 Mg Tablet, 750 MG PO DAILY, # 7 TAB Prov:FRANCES ALVAP 06/06/18 Clindamycin Hcl (CLINDAMYCIN HCL) 300 Mg Capsule, 300 MG PO Q6H, #28 CAPSULE Prov:FRANCES ALVAP 06/06/18 Hydrocodone Bit/Acetaminophen (HYDROCODON-ACETAMINOPHEN 5-325) 1 Each Tablet, 1 EACH PO Q4H Y for PAIN, #12 TAB 0 Refills Prov:FRANCES ALVAP 06/06/18 Alprazolam (XANAX) 0.5 Mg Tablet, 1 TAB PO TID for swelling, #12 TAB 0 Refills Prov:JOSÉ LUIS RODRIGUEZ MD 04/06/17 Reported Medications Lisinopril (LISINOPRIL) 10 Mg Tablet, 10 MG PO QDAY, TAB 06/02/18 Metformin Hcl (METFORMIN HCL) 1,000 Mg Tablet, 1 TAB PO BID, TAB 04/17/17 Discontinued Reported Medications Fluoxetine Hcl (PROZAC) 20 Mg Capsule, 30 MG PO QDAY, CAPSULE 12/13/17 Discontinued Scripts Amoxicillin (AMOXICILLIN) 500 Mg Capsule, 1 CAP PO Q8H, #30 CAPSULE 0 Refills Prov:ROB VIDAL MD 06/02/18 Hydrocodone Bit/Acetaminophen (NORCO 5-325 TABLET) 1 Each Tablet, 1 EACH PO Q4- 6H Y for PAIN, #10 TAB Prov:NELDA [facility]ROE [facility]- 12/13/17 Sulfamethoxazole/Trimet 800-160 Mg Tab (BACTRIM DS TABLET) 1 Each Tablet, 1 TAB PO Q12H for 10 Days, #20 TAB Prov:NELDA [facility]ROE [facility]- 12/13/17 Pantoprazole Sodium (PANTOPRAZOLE SODIUM) 40 Mg Tablet.dr, 40 MG PO QDAY for 30 Days, #30 TAB.SR Prov:JOSÉ LUIS RODRIGUEZ MD 06/09/17 Diet: Regular Activity: As Tolerated Copies to: TRISTAN PADILLA MD Venous Thromboembolism Antithrombotics Is Pt On Any Antithrombotics?: Yes Problem Qualifiers (1) HTN (hypertension): Hypertension type: essential hypertension Qualified Codes: I10 - Essential ( primary) hypertension FRANCES ALVA [facility] Jun 06, 2018 10:14
[2018-06-06] MEDS ORDERED: SULF-198 PO (11:46)
[2018-06-06] MEDS ORDERED: TRIMETH/SULFA DS 160-800MG TAB PO ONE (11:50)
== END 2018-06-06 12:10 | disposition home or self-care (01) | DRG 603 ==
LOC: ER 06:54 → MED 10:00
PROVIDERS: ADMIT Internal Medicine; ATTEND Internal Medicine
DX: L03.211 Cellulitis of face (principal); K08.89 Other specified disorders of teeth and supporting structures; E11.9 Type 2 diabetes mellitus without complications; F41.8 Other specified anxiety disorders; I10 Essential (primary) hypertension; Z79.84 Long term (current) use of oral hypoglycemic drugs; Z87.891 Personal history of nicotine dependence; Z86.14 Personal history of Methicillin resistant Staphylococcus aureus infection; Z90.710 Acquired absence of both cervix and uterus
CPT/HCPCS: 36415; 36416; 70487; 70491; 82310; 82374; 82435; 82565; 82947; 82948; 84132; 84295; 84520; 85025; 96374; 96375; 96376; 99283; 99284; J0295; J1650; J1956; J2270; J3490; J7030; J7050; Q9967

== ENCOUNTER 2018-09-07 17:57 | Emergency (ER) | payer MEDICAID ==
[2018-06-03 11:58] VITALS: BMI 39.1
[~2018-09-07 17:57] MED LIST changes: +CLIN300C99 PO; -HYDR-4309 PO; +HYDR-653 PO; +LEVO750T44 PO; -METF-421 PO; +METF-452 PO
[2018-09-07 18:01] VITALS: BP 136/83
--- NOTE | 2018-09-07 18:09 | ER Report ---
History and Physical Time Seen By MD: 18:09 Hx. of Stated Complaint: PATIENT REPORTS ABSCESS ON HER LEFT LOWER JAW THAT STARTED YESTERDAY HPI/ROS CHIEF COMPLAINT: Tooth pain, swelling, purulent drainage HISTORY OF PRESENT ILLNESS: 43-year-old female patient presents to emergency room with complaint of tooth pain, swelling and purulent drainage. Patient states this been going on for the last couple of days. She states that she had something similar to this a few months ago which resulted in her being hospitalized and on IV antibiotics. Patient states she's noticed some swelling in front of tooth #23. She states she did press on that and did have some purulent drainage. She states that she's been able to eat and drink, but has not been able to go and see a dentist since she was hospitalized. She states she k nows that her teeth need to be pulled, however she does not have the ability to do that. Allergies: Coded Allergies: No Known Drug Allergies (Unverified , 06/02/18) Home Meds Active Scripts Amoxicillin 500 Mg Tab (AMOXICILLIN 500 MG TAB) 500 Mg Tablet, 1 TAB PO Q8H, #30 TAB Prov:NIKI HANCOCK [facility] 09/07/18 Sulfamethoxazole/Trimet 800-160 Mg Tab (BACTRIM DS TABLET) 1 Each Tablet, 1 TAB PO Q12H, #14 TAB Prov:FRANCES ALVA [facility] 06/06/18 Levofloxacin 750 Mg Tab (LEVAQUIN 750 MG TAB) 750 Mg Tablet, 750 MG PO DAILY, #6 TAB Prov:FRANCES ALVA [facility] 06/06/18 Clindamycin Hcl (CLINDAMYCIN HCL) 300 Mg Capsule, 300 MG PO Q6H, #24 CAPSULE Prov:FRANCES ALVA [facility] 06/06/18 Hydrocodone Bit/Acetaminophen (HYDROCODON-ACETAMINOPHEN 5-325) 1 Each Tablet, 1 EACH PO Q4H PRN for PAIN, #12 TAB 0 Refills Prov:FRANCES ALVA [facility] 06/06/18 Alprazolam (XANAX) 0.5 Mg Tablet, 1 TAB PO TID for swelling, #12 TAB 0 Refills Prov:JOSÉ LUIS RODRIGUEZ MD 04/06/17 Reported Medications Lisinopril (LISINOPRIL) 10 Mg Tablet, 10 MG PO QDAY, TAB 06/02/18 Metformin Hcl (METFORMIN HCL) 1,000 Mg Tablet, 1 TAB PO BID, TAB 04/17/17 Past Medical/Surgical History Patient has a past medical history of hypertension, ulcers, H. pylori, poor dentition, diabetes, anxiety. Patient has surgical history of hysterectomy, tonsillectomy. Reviewed Nurses Notes: Yes Hx Smoking: No Smoking Status: Former Smoker Hx Substance Use Disorder: No Hx Alcohol Use: No Constitutional Vital Sign - Last 24 Hours 09/07/18 18:01 Temp 98.0 Pulse 97 Resp 20 B/P (MAP) 136/83 Pulse Ox 94 O2 Delivery Room Air Physical Exam General appearance: Alert no distress. Respiratory: Chest is non tender, lungs are clear to auscultation. Cardiac: Regular rate and rhythm. ENT: Patient has poor dentition, tooth #23 is cracked, undergone anterior to the gum there does appear to be a growth. DIFFERENTIAL DIAGNOSIS: After history and physical exam differential diagnosis was considered for tooth abscess, dental infection, growth on gum Medical Decision Making ED Course/Re-evaluation ED Course Patient was admitted to an exam room, history and physical were obtained. It differential diagnoses were considered. Examination patient has poor dentition, tooth #23 is cracked. She does have some tenderness there. Patient states that she did have some purulent drainage. On examination it appears that the purulent drainage did come from an area of a growth. I did recommend patient follow-up with dentist. Patient states that she has not been able to. We will go ahead and place her on antibiotics, if she is no improvement she is from the emergency room. She is to take medication as directed. Patient verbalized understanding and agreement with plan. Decision to Disposition Date: Sep 07, 2018 Decision to Disposition Time: 18:23 Depart Departure Latest Vital Signs Vital Signs Date Time Temp Pulse Resp B/P (MAP) Pulse Ox O2 Delivery O2 Flow Rate FiO2 09/07/18 18:01 98.0 97 20 136/83 94 Room Air Impression: Primary Impression: Dental infection Condition: Improved Disposition: HOME OR SELF-CARE New Scripts Amoxicillin 500 Mg Tab (AMOXICILLIN 500 MG TAB) 500 Mg Tablet 1 TAB PO Q8H, #30 TAB Prov: NIKI HANCOCK 09/07/18 Patient Instructions: Dental Abscess (ED) Additional Instructions: You may take Ibuoprofen as needed for pain. Rinse mouth with warm salt water after every meal. Eat soft foods. Follow up with your dentist as soon as possible, call to make an appointment. Return to the ER if condition worsens. NIKI HANCOCK Sep 07, 2018 18:09
[2018-09-07] MEDS ORDERED: AMOX500T10 PO (18:23)
== END 2018-09-07 18:36 | disposition home or self-care (01) ==
LOC: ER 18:13
DX: K04.7 Periapical abscess without sinus (principal)
CPT/HCPCS: 99281

== ENCOUNTER 2018-11-25 20:09 | Emergency (ER) | payer MEDICAID ==
[2018-06-03 11:58] VITALS: Wt 106.8 kg
[2018-11-25 20:13] VITALS: BP 168/95
--- NOTE | 2018-11-25 20:16 | ER Report ---
History and Physical Time Seen By MD: 20:16 Hx. of Stated Complaint: PT REPORTS ABCESS ON RIGHT SIDE OF NOSE/FACE. PT REPORTS THIS HAPPENING MULTIPLE TIMES. PT REPORTS HAVING DRAINAGE OUT OF NOSE. HPI/ROS CHIEF COMPLAINT: Abscess and nose HISTORY OF PRESENT ILLNESS: 43-year-old female patient presents to emergency room with complaint of abscess in her nose. Patient states that she has been having problems for the last 2 days. She states that there is been nothing that seems to help. She states that she is having worsening pain today. Patient states that she is not had any fevers, however she states she has had chills. She denies any nausea, vomiting or diarrhea. She has been taking Tylenol and ibuprofen today with no improvement. Patient states that she has been hospitalized for this in the past. REVIEW OF SYSTEMS: Respiratory: No cough, no dyspnea. Cardiovascular: No chest pain, no palpitations. Gastrointestinal: No vomiting, no abdominal pain. Musculoskeletal: No back pain. Allergies: Coded Allergies: No Known Drug Allergies (Unverified , 11/25/18) Home Meds Active Scripts Hydrocodone Bit/Acetaminophen (HYDROCODON-ACETAMINOPHEN 5-325) 1 Each Tablet, 1 EACH PO Q4-6H PRN for PAIN, #8 TAB Prov:NIKI HANCOCK [facility] 11/25/18 Sulfamethoxazole/Trimet 800-160 Mg Tab (BACTRIM DS TABLET) 1 Each Tablet, 1 TAB PO Q12H, #18 TAB Prov:NIKI HANCOCK [facility] 11/25/18 Cephalexin 500 Mg Tab (KEFLEX 500 MG TAB) 500 Mg Tablet, 500 MG PO Q6H, #38 TAB Prov:NIKI HANCOCK [facility] 11/25/18 Reported Medications Metformin Hcl (METFORMIN HCL) 1,000 Mg Tablet, 1 TAB PO BID, TAB 04/17/17 Discontinued Scripts Sulfamethoxazole/Trimet 800-160 Mg Tab (BACTRIM DS TABLET) 1 Each Tablet, 1 TAB PO Q12H, #14 TAB Prov:FRANCES ALVA [facility] 06/06/18 Alprazolam (XANAX) 0.5 Mg Tablet, 1 TAB PO TID for swelling, #12 TAB 0 Refills Prov:JOSÉ LUIS RODRIGUEZ MD 04/06/17 Past Medical/Surgical History Patient has a past medical history of hypertension, H. pylori, multiple abscesses, diabetes, anxiety. Patient has surgical history of appendectomy, hysterectomy, tonsillectomy. Reviewed Nurses Notes: Yes Hx Smoking: No Smoking Status: Former Smoker Hx Substance Use Disorder: No Hx Alcohol Use: No Constitutional Vital Sign - Last 24 Hours 11/25/18 11/25/18 11/25/18 11/25/18 20:12 20:13 20:24 20:39 Temp 98.2 Pulse 107 106 100 B/P (MAP) 168/95 (119) 168/95 Pulse Ox 95 95 94 O2 Delivery Room Air 11/25/18 11/25/18 11/25/18 20:54 21:09 21:24 Pulse 90 97 111 Pulse Ox 94 94 94 Physical Exam General Appearance: The patient is alert, has no immediate need for airway protection and no current signs of toxicity. Respiratory: Chest is non tender, lungs are clear to auscultation. Cardiac: regular rate and rhythm Gastrointestinal: Abdomen is soft and non tender, no masses, bowel sounds normal. Musculoskeletal: Neck: Neck is supple and non tender. Extremities have full range of motion and are non tender. Skin: No rashes or lesions. Patient does have swelling on the inside of her right nostril, there is no obvious purulent drainage. She does have some blood there. DIFFERENTIAL DIAGNOSIS: After history and physical exam differential diagnosis was considered for abscess, cellulitis, infection. Medical Decision Making Data Points Result Diagram: 11/25/18203411/25/182034 Laboratory Hematology Test 11/25/18 20:35 Red Blood Count 5.21 M/uL (4.17-5.56) Mean Corpuscular Volume 91.7 fL (80.0-96.0) Mean Corpuscular Hemoglobin 29.7 pg (26.0-33.0) Mean Corpuscular Hemoglobin Concent 32.3 g/dL (32.0-36.0) Red Cell Distribution Width 13.7 % (11.5-14.5) Mean Platelet Volume 9.2 fL (7.2-11.1) Neutrophils (%) (Auto) 58.4 % (39.4-72.5) Lymphocytes (%) (Auto) 30.7 % (17.6-49.6) Monocytes (%) (Auto) 8.2 % (4.1-12.4) Eosinophils (%) (Auto) 2.3 % (0.4-6.7) Basophils (%) (Auto) 0.4 % (0.3-1.4) Nucleated RBC Relative Count (auto) 0.1 /100WBC Neutrophils # (Auto) 6.0 K/uL (2.0-7.4) Lymphocytes # (Auto) 3.2 K/uL (1.3-3.6) Monocytes # (Auto) 0.8 K/uL (0.3-1.0) Eosinophils # (Auto) 0.2 K/uL (0.0-0.5) Basophils # (Auto) 0.0 K/uL (0.0-0.1) Nucleated RBC Absolute Count (auto) 0.01 K/uL Sodium Level 141 mmol/L (137-145) Potassium Level 3.7 mmol/L (3.5-5.0) Chloride Level 106 mmol/L (98-107) Carbon Dioxide Level 22 mmol/L (22-31) Blood Urea Nitrogen 11 mg/dl (7-18) Creatinine 0.60 mg/dl (0.52-1.04) Glomerular Filtration Rate Calc > 60.0 Random Glucose 332 mg/dl (75-110) Calcium Level 9.3 mg/dl (8.4-10.2) Total Bilirubin 0.5 mg/dl (0.2-1.3) Aspartate Amino Transf (AST/SGOT) 54 U/L (0-35) Alanine Aminotransferase (ALT/SGPT) 73 U/L (0-56) Alkaline Phosphatase 115 U/L (0-126) Total Protein 7.6 g/dl (6.3-8.2) Albumin 4.2 g/dl (3.5-5.0) Chemistry Test 11/25/18 20:35 White Blood Count 10.3 k/uL (4.5-11.0) Red Blood Count 5.21 M/uL (4.17-5.56) Hemoglobin 15.4 g/dL (12.0-16.0) Hematocrit 47.7 % (34.0-47.0) Mean Corpuscular Volume 91.7 fL (80.0-96.0) Mean Corpuscular Hemoglobin 29.7 pg (26.0-33.0) Mean Corpuscular Hemoglobin Concent 32.3 g/dL (32.0-36.0) Red Cell Distribution Width 13.7 % (11.5-14.5) Platelet Count 90 K/uL (150-450) Mean Platelet Volume 9.2 fL (7.2-11.1) Neutrophils (%) (Auto) 58.4 % (39.4-72.5) Lymphocytes (%) (Auto) 30.7 % (17.6-49.6) Monocytes (%) (Auto) 8.2 % (4.1-12.4) Eosinophils (%) (Auto) 2.3 % (0.4-6.7) Basophils (%) (Auto) 0.4 % (0.3-1.4) Nucleated RBC Relative Count (auto) 0.1 /100WBC Neutrophils # (Auto) 6.0 K/uL (2.0-7.4) Lymphocytes # (Auto) 3.2 K/uL (1.3-3.6) Monocytes # (Auto) 0.8 K/uL (0.3-1.0) Eosinophils # (Auto) 0.2 K/uL (0.0-0.5) Basophils # (Auto) 0.0 K/uL (0.0-0.1) Nucleated RBC Absolute Count (auto) 0.01 K/uL Glomerular Filtration Rate Calc > 60.0 Calcium Level 9.3 mg/dl (8.4-10.2) Total Bilirubin 0.5 mg/dl (0.2-1.3) Aspartate Amino Transf (AST/SGOT) 54 U/L (0-35) Alanine Aminotransferase (ALT/SGPT) 73 U/L (0-56) Alkaline Phosphatase 115 U/L (0-126) Total Protein 7.6 g/dl (6.3-8.2) Albumin 4.2 g/dl (3.5-5.0) ED Course/Re-evaluation ED Course Patient was admitted on exam room, history and physical were obtained. Differential diagnoses were considered. On examination lungs are clear, heart is regular, abdomen is soft and nontender. Patient does have an abscess that as noted on the inside of her right nostril. A CBC, CMP were done. CBC showed no acute findings. CMP did show an elevated blood sugar 332. I believe this is likely the cause of her recurring abscesses. I discussed this with the patient. We will go ahead and treat her with clindamycin here in the emergency room. We will also discharge her home with Bactrim and Keflex. She is to follow-up with the [facility] later this week. I would like her to monitor her blood sugar more closely. She is to return to the emergency room if condition worsens. Patient will be given a prescription for the Keflex, Bactrim as well as a limited supply of pain medication. Patient verbalized understanding and agreement with plan. Decision to Disposition Date: Nov 25, 2018 Decision to Disposition Time: 21:29 Depart Departure Latest Vital Signs Vital Signs Date Time Temp Pulse Resp B/P (MAP) Pulse Ox O2 Delivery O2 Flow Rate FiO2 11/25/18 21:24 111 94 11/25/18 20:13 98.2 168/95 Room Air Impression: Primary Impression: Nasal abscess Condition: Improved Disposition: HOME OR SELF-CARE New Scripts Hydrocodone Bit/Acetaminophen (HYDROCODON-ACETAMINOPHEN 5-325) 1 Each Tablet 1 EACH PO Q4-6H PRN for PAIN, #8 TAB Prov: NIKI HANCOCK 11/25/18 Sulfamethoxazole/Trimet 800-160 Mg Tab (BACTRIM DS TABLET) 1 Each Tablet 1 TAB PO Q12H, #18 TAB Prov: NIKI HANCOCK 11/25/18 Cephalexin 500 Mg Tab (KEFLEX 500 MG TAB) 500 Mg Tablet 500 MG PO Q6H, #38 TAB Prov: NIKI HANCOCK 11/25/18 Patient Instructions: Abscess (ED) Additional Instructions: Take medications as prescribed. Follow up with the [facility] on or Monday this week. Get plenty of rest. Limit activity by pain. Monitor your blood sugar and diet more closely. Return to the ER if condition worsens. NKII HANCOCK Nov 25, 2018 20:16
[2018-11-25] MEDS ORDERED: CLINDAMYCIN(*) 600 MG/NS 50 ML 50 ML IVPB ONE (20:25)
[2018-11-25] MEDS ORDERED: MORPHINE 4 MG/ML SDV IVP ONE (20:40)
[2018-11-25 20:54] LABS: PLATELET COUNT, AUTOMATED 90 K/uL (150-450)
[2018-11-25] MEDS ORDERED: CEPHALEXIN 500 MG CAP TH 2 CAP/BOTTLE PO ONE (21:25)
[2018-11-25] MEDS ORDERED: TRIMETHOPRIM/SULFA 160-800 TH 2 TAB/BOTTLE PO ONE (21:25)
[2018-11-25] MEDS ORDERED: ACET/HYDROC 5/325MG TH ER ONLY 2 TAB/BOTTLE PO ONE (21:25)
[2018-11-25] MEDS ORDERED: HYDR-385 PO (21:27)
[2018-11-25] MEDS ORDERED: CEPH500T7 PO (21:27)
[2018-11-25] MEDS ORDERED: SULF-198 PO (21:27)
== END 2018-11-25 21:47 | disposition home or self-care (01) ==
LOC: ER 20:16
DX: J34.0 Abscess, furuncle and carbuncle of nose (principal)
CPT/HCPCS: 85025; 96365; 96375; 99284; J2270; J3490; 82040; 82247; 82310; 82374; 82435; 82565; 82947; 84075; 84132; 84155; 84295; 84450; 84460; 84520

== ENCOUNTER 2019-04-16 21:02 | Emergency (ER) | payer SELFPAY ==
[2018-06-03 11:58] VITALS: Wt 106.8 kg
[~2019-04-16 21:02] MED LIST changes: +CEPH500T7 PO; -OMEP-125 PO; +OMEP-126 PO
[2019-04-16 21:07] VITALS: BP 143/92
--- NOTE | 2019-04-16 21:09 | ER Report ---
History and Physical Time Seen By MD: 21:09 HPI/ROS CHIEF COMPLAINT: sore on nose. HISTORY OF PRESENT ILLNESS: This is a 43 year old female. she has a history of skin/soft tissue infections. Has another that started on her nose 2 days ago. Tip of nose towards the left nasal passage. Pimple was there, popped it, slight drainage. Now with scab over the area. Painful. No fevers. Has had some cold symptoms as well including congestions, runny nose, some decreased or muffled hearing in the left ear, but no ear pain. Has mild cough. Mild sore throat. Allergies: Coded Allergies: No Known Drug Allergies (Unverified , 11/25/18) Home Meds Active Scripts Doxycycline Hyclate (DOXYCYCLINE HYCLATE) 100 Mg Tablet, 100 MG PO BID, #14 TAB 0 Refills Prov:ROB VIDAL MD 04/16/19 Reported Medications Glimepiride (GLIMEPIRIDE) 4 Mg Tablet, 4 MG PO QDAY 04/16/19 Gabapentin (GABAPENTIN) 600 Mg Tablet, 600 MG PO HS 04/16/19 Lisinopril (LISINOPRIL) 20 Mg Tablet, 20 MG PO QDAY, TAB 04/16/19 Metformin Hcl (METFORMIN HCL) 1,000 Mg Tablet, 1 TAB PO BID, TAB 04/17/17 Discontinued Scripts Hydrocodone Bit/Acetaminophen (HYDROCODON-ACETAMINOPHEN 5-325) 1 Each Tablet, 1 EACH PO Q4-6H PRN for PAIN, #8 TAB Prov:NIKI HANCOCK [facility] 11/25/18 Sulfamethoxazole/Trimet 800-160 Mg Tab (BACTRIM DS TABLET) 1 Each Tablet, 1 TAB PO Q12H, #18 TAB Prov:NIKI HANCOCK [facility] 11/25/18 Cephalexin 500 Mg Tab (KEFLEX 500 MG TAB) 500 Mg Tablet, 500 MG PO Q6H, #38 TAB Prov:NIKI HANCOCK 11/25/18 Reviewed Nurses Notes: Yes Hx Smoking: No Smoking Status: Former Smoker Hx Substance Use Disorder: No Hx Alcohol Use: No Constitutional Vital Sign - Last 24 Hours 04/16/19 21:07 Temp 98.5 Pulse 105 Resp 18 B/P (MAP) 143/92 Pulse Ox 94 O2 Delivery Room Air Physical Exam General Appearance: Alert, no acute distress. Eyes: Pupils equal and round no injection. Extraocular movements are intact. ENT: Normal oral mucosa. Moist mucous membranes. Tympanic membranes are normal. Has normal nasal mucosa. Red and inflammed on tip of nose, with scab. No current drainage and no fluctuance. Neck: Neck is supple and non tender. Respiratory: Chest is non tender, lungs are clear to auscultation. Cardiac: regular rate and rhythm Gastrointestinal: Abdomen is soft and non tender, no masses, bowel sounds normal. Musculoskeletal: Extremities have full range of motion. Skin: As above. No other rashes or lesions. DIFFERENTIAL DIAGNOSIS: After history and physical exam differential diagnosis was considered for patient with cellulitis of nose and signs of a viral upper respiratory infection. Medical Decision Making ED Course/Re-evaluation ED Course Will start Doxycycline for the cellulitis. Symptomatic treatment for the upper respiratory infection. Consider eval by either dermatology or infectious disease for recurrent skin infections. Decision to Disposition Date: Apr 16, 2019 Decision to Disposition Time: 21:39 Depart Departure Latest Vital Signs Vital Signs Date Time Temp Pulse Resp B/P (MAP) Pulse Ox O2 Delivery O2 Flow Rate FiO2 04/16/19 21:07 98.5 105 18 143/92 94 Room Air Impression: Primary Impression: Cellulitis of face Condition: Improved Disposition: HOME OR SELF-CARE Referrals: HAR[facility]ON [facility] [employer]ATIONS REPRESENTATIVE (PCP) New Scripts Doxycycline Hyclate (DOXYCYCLINE HYCLATE) 100 Mg Tablet 100 MG PO BID, #14 TAB 0 Refills Prov: ROB VIDAL MD 04/16/19 Patient Instructions: Cellulitis (ED) Additional Instructions: Take the antibiotic Doxycycline 100mg twice a day for 7 days. Consider follow-up with either dermatology or with an infectious disease specialist. Talk to your regular doctor about a referral for this. Wash the affected area with soap and water twice a day. ROB VIDAL MD Apr 16, 2019 21:09
[2019-04-16] MEDS ORDERED: LISI20TA29 PO (21:13)
[2019-04-16] MEDS ORDERED: GABA-533 PO (21:13)
[2019-04-16] MEDS ORDERED: GLIM4TAB50 PO (21:14)
[2019-04-16] MEDS ORDERED: DOXY-179 PO (21:40)
[2019-04-16] MEDS ORDERED: DOXYCYCLINE HYCL 100 MG TAB PO ONE (21:45)
== END 2019-04-16 21:49 | disposition home or self-care (01) ==
LOC: ER 21:26
DX: L03.211 Cellulitis of face (principal)
CPT/HCPCS: 99283

== ENCOUNTER 2019-05-02 01:11 | Emergency (ER) | payer SELFPAY ==
[2018-06-03 11:58] VITALS: Wt 106.6 kg
[~2019-05-02 01:11] MED LIST changes: +DOXY-179 PO; +GABA-533 PO; +GLIM4TAB50 PO
[2019-05-02] MEDS ORDERED: DULO30CA35 PO (01:22)
[2019-05-02] MEDS ORDERED: NS(*) 0.9% 1000 ML BAG 1,000 ML IV ONE (01:40)
[2019-05-02] MEDS ORDERED: MORPHINE 4 MG/ML SDV IVP ONE (02:10)
--- NOTE | 2019-05-02 02:27 | ER Report ---
History and Physical Time Seen By MD: 01:30 Hx. 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 She has been focused on working and getting a promotion. She states that she has had 5 days of concerning symptoms. This started with lower back pain that was initially on both sides but is primarily on the left side. The back pain radiated up to her neck and has been causing headaches throughout her head. She has also noticed paresthesias of the left lower leg and both ankles. She has noted that her legs feel more tight than normal and she is having difficulty feeling the ground with her left foot. She has not had any recent travel last year. She has not had fevers or chills or night sweats. She has not had chest pain, difficulty breathing. She has been nauseous but no vomiting. She has no abdominal pain. She has had daily episodes of incontinence for the past 5 days. She noted that when she gets home from work her underwear is soaked in urine. She also had one episode of bowel incontinence at night 2 nights ago. However, she states that she has normal sensation in the area. Family history is significant for a father with colon cancer, without other known family history. Patient states that she also has had behavioral changes that began one month ago. At this time she was placed on Paxil by her primary doctor. She states that this did not help and when she saw her primary doctor yesterday she was switched to Celexa. She discussed the symptoms with her primary doctor who put her on gabapentin for potential peripheral neuropathy. She states she has had no improvement in symptoms today. Patient has had no recent concerning illnesses. REVIEW OF SYSTEMS: Constitutional: No fever, no chills. Eyes: no discharge, occ blurred vision ENT: No sore throat. Cardiovascular: No chest pain, no palpitations. Respiratory: No cough, no shortness of breath. Gastrointestinal: No abdominal pain, no vomiting. Genitourinary: No hematuria. Musculoskeletal: above Skin: No rashes. Neurological: above Remainder of the 14 system rev: Yes Allergies: Coded Allergies: No Known Drug Allergies (Unverified , 05/02/19) Home Meds Reported Medications Duloxetine Hcl (CYMBALTA) 30 Mg Capsule.dr, 30 MG PO QDAY, #5 CAP 05/02/19 Glimepiride (GLIMEPIRIDE) 4 Mg Tablet, 4 MG PO QDAY 04/16/19 Gabapentin (GABAPENTIN) 600 Mg Tablet, 600 MG PO HS 04/16/19 Metformin Hcl (METFORMIN HCL) 1,000 Mg Tablet, 1 TAB PO BID, TAB 04/17/17 Discontinued Reported Medications Lisinopril (LISINOPRIL) 20 Mg Tablet, 20 MG PO QDAY, TAB 04/16/19 Discontinued Scripts Doxycycline Hyclate (DOXYCYCLINE HYCLATE) 100 Mg Tablet, 100 MG PO BID, #14 TAB 0 Refills Prov:ROB VIDAL MD 04/16/19 Reviewed Nurses Notes: Yes Old Medical Records Reviewed: Yes Hx Smoking: No Smoking Status: Former Smoker Hx Substance Use Disorder: No Hx Alcohol Use: No Constitutional Vital Sign - Last 24 Hours 05/02/19 05/02/19 05/02/19 05/02/19 01:15 01:16 01:30 01:41 Temp 97.5 Pulse 106 Resp 15 B/P (MAP) 145/84 (104) 145/84 129/75 (93) Pulse Ox 92 92 O2 Delivery Room Air 05/02/19 05/02/19 05/02/19 05/02/19 01:46 02:00 02:16 02:51 Pulse 111 102 96 B/P (MAP) 135/85 (102) Pulse Ox 92 92 90 05/02/19 05/02/19 05/02/19 05/02/19 02:56 03:30 04:00 04:05 Pulse 97 86 B/P (MAP) 130/80 (97) 127/79 (95) Pulse Ox 90 91 05/02/19 06:39 B/P (MAP) 120/65 (83) Physical Exam General Appearance: The patient is alert, has no immediate need for airway protection and no signs of toxicity. [ ] Eyes: Pupils equal and round no pallor or injection. ENT, Mouth: Mucous membranes are moist. Respiratory: There are no retractions, lungs are clear to auscultation. Cardiovascular: Regular rate and rhythm. no m/r/g Gastrointestinal: Abdomen is soft and non tender, no masses, bowel sounds normal. Neurological: alert, oriented x 4. 5/5 ms throughout upper ext= lower ext. sensation; decreased lt touch left lower ext and bilateral dorsal great toe webspace. She has decreased pinprick in these areas. Nl gu/rectal sensation. CN ii-xii intact. normal fnf, no trunkal ataxia, nl [id number]. No nystagmus. Reflexes 1+ throughout Skin: Warm and dry, no rashes. Musculoskeletal: Pt has midline ttp throughout spine, as well as bilateral paraspinal ttp throughout spine. No nuchal rigidity. Extremities are nontender, nonswollen and have full range of motion. DIFFERENTIAL DIAGNOSIS: After history and physical exam differential diagnosis w as considered for spinal mass, guillain barre, intracranial mass/hemorrhage/sah/mening/encephalitis, cauda equina, electrolyte abnormality, or other emergent cause of symptoms. Medical Decision Making Data Points Result Diagram: 05/02/19 0237 05/02/19 0237 Laboratory Hematology Test 05/02/19 02:37 05/02/19 03:14 Red Blood Count 4.69 M/uL (4.17-5.56) Mean Corpuscular Volume 90.2 fL (80.0-96.0) Mean Corpuscular Hemoglobin 31.2 pg (26.0-33.0) Mean Corpuscular Hemoglobin Concent 34.6 g/dL (32.0-36.0) Red Cell Distribution Width 14.0 % (11.5-14.5) Mean Platelet Volume 9.7 fL (7.2-11.1) Neutrophils (%) (Auto) 63.0 % (39.4-72.5) Lymphocytes (%) (Auto) 25.5 % (17.6-49.6) Monocytes (%) (Auto) 8.4 % (4.1-12.4) Eosinophils (%) (Auto) 2.7 % (0.4-6.7) Basophils (%) (Auto) 0.4 % (0.3-1.4) Nucleated RBC Relative Count (auto) 0.0 /100WBC Neutrophils # (Auto) 6.9 K/uL (2.0-7.4) Lymphocytes # (Auto) 2.8 K/uL (1.3-3.6) Monocytes # (Auto) 0.9 K/uL (0.3-1.0) Eosinophils # (Auto) 0.3 K/uL (0.0-0.5) Basophils # (Auto) 0.0 K/uL (0.0-0.1) Nucleated RBC Absolute Count (auto) 0.00 K/uL Sodium Level 138 mmol/L (137-145) Potassium Level 3.7 mmol/L (3.5-5.0) Chloride Level 103 mmol/L (98-107) Carbon Dioxide Level 23 mmol/L (22-31) Blood Urea Nitrogen 13 mg/dl (7-18) Creatinine 0.60 mg/dl (0.52-1.04) Glomerular Filtration Rate Calc > 60.0 Random Glucose 224 mg/dl (75-110) Calcium Level 9.3 mg/dl (8.4-10.2) Phosphorus Level 3.7 mg/dl (2.5-4.5) Magnesium Level 1.7 mg/dl (1.7-2.2) Total Bilirubin 0.4 mg/dl (0.2-1.3) Aspartate Amino Transf (AST/SGOT) 33 U/L (0-35) Alanine Aminotransferase (ALT/SGPT) 55 U/L (0-56) Alkaline Phosphatase 97 U/L (0-126) Total Protein 7.3 g/dl (6.3-8.2) Albumin 4.1 g/dl (3.5-5.0) Urine Color Yellow Urine Clarity Slightly-cloudy Urine pH 5.0 pH (4.8-9.5) Urine Specific [place] 1.026 Urine Protein Negative mg/dL (NEGATIVE) Urine Glucose (UA) 500 mg/dL (NEGATIVE) Urine Ketones Trace mg/dL (NEGATIVE) Urine Blood Negative (NEGATIVE) Urine Nitrite Negative (NEGATIVE) Urine Bilirubin Negative (NEGATIVE) Urine Urobilinogen Negative mg/dL (0.2-1.9) Urine Leukocyte Esterase Negative (NEGATIVE) Urine RBC <1 /HPF (0-2/HPF) Urine WBC 1 /HPF (0-5/HPF) Urine Squamous Epithelial Cells Many /LPF (</=FEW) Urine Bacteria Few /HPF (NONE-FEW) Urine Granular Casts Few /LPF (NONE) Urine Mucus None /HPF (NONE-FEW) Chemistry Test 05/02/19 02:37 05/02/19 03:14 White Blood Count 11.0 k/uL (4.5-11.0) Red Blood Count 4.69 M/uL (4.17-5.56) Hemoglobin 14.6 g/dL (12.0-16.0) Hematocrit 42.3 % (34.0-47.0) Mean Corpuscular Volume 90.2 fL (80.0-96.0) Mean Corpuscular Hemoglobin 31.2 pg (26.0-33.0) Mean Corpuscular Hemoglobin Concent 34.6 g/dL (32.0-36.0) Red Cell Distribution Width 14.0 % (11.5-14.5) Platelet Count 163 K/uL (150-450) Mean Platelet Volume 9.7 fL (7.2-11.1) Neutrophils (%) (Auto) 63.0 % (39.4-72.5) Lymphocytes (%) (Auto) 25.5 % (17.6-49.6) Monocytes (%) (Auto) 8.4 % (4.1-12.4) Eosinophils (%) (Auto) 2.7 % (0.4-6.7) Basophils (%) (Auto) 0.4 % (0.3-1.4) Nucleated RBC Relative Count (auto) 0.0 /100WBC Neutrophils # (Auto) 6.9 K/uL (2.0-7.4) Lymphocytes # (Auto) 2.8 K/uL (1.3-3.6) Monocytes # (Auto) 0.9 K/uL (0.3-1.0) Eosinophils # (Auto) 0.3 K/uL (0.0-0.5) Basophils # (Auto) 0.0 K/uL (0.0-0.1) Nucleated RBC Absolute Count (auto) 0.00 K/uL Glomerular Filtration Rate Calc > 60.0 Calcium Level 9.3 mg/dl (8.4-10.2) Phosphorus Level 3.7 mg/dl (2.5-4.5) Magnesium Level 1.7 mg/dl (1.7-2.2) Total Bilirubin 0.4 mg/dl (0.2-1.3) Aspartate Amino Transf (AST/SGOT) 33 U/L (0-35) Alanine Aminotransferase (ALT/SGPT) 55 U/L (0-56) Alkaline Phosphatase 97 U/L (0-126) Total Protein 7.3 g/dl (6.3-8.2) Albumin 4.1 g/dl (3.5-5.0) Urine Color Yellow Urine Clarity Slightly-cloudy Urine pH 5.0 pH (4.8-9.5) Urine Specific [place] 1.026 Urine Protein Negative mg/dL (NEGATIVE) Urine Glucose (UA) 500 mg/dL (NEGATIVE) Urine Ketones Trace mg/dL (NEGATIVE) Urine Blood Negative (NEGATIVE) Urine Nitrite Negative (NEGATIVE) Urine Bilirubin Negative (NEGATIVE) Urine Urobilinogen Negative mg/dL (0.2-1.9) Urine Leukocyte Esterase Negative (NEGATIVE) Urine RBC <1 /HPF (0-2/HPF) Urine WBC 1 /HPF (0-5/HPF) Urine Squamous Epithelial Cells Many /LPF (</=FEW) Urine Bacteria Few /HPF (NONE-FEW) Urine Granular Casts Few /LPF (NONE) Urine Mucus None /HPF (NONE-FEW) Urinalysis Test 05/02/19 03:14 Urine Color Yellow Urine Clarity Slightly-cloudy Urine pH 5.0 pH (4.8-9.5) Urine Specific [place] 1.026 Urine Protein Negative mg/dL (NEGATIVE) Urine Glucose (UA) 500 mg/dL (NEGATIVE) Urine Ketones Trace mg/dL (NEGATIVE) Urine Blood Negative (NEGATIVE) Urine Nitrite Negative (NEGATIVE) Urine Bilirubin Negative (NEGATIVE) Urine Urobilinogen Negative mg/dL (0.2-1.9) Urine Leukocyte Esterase Negative (NEGATIVE) Urine RBC <1 /HPF (0-2/HPF) Urine WBC 1 /HPF (0-5/HPF) Urine Squamous Epithelial Cells Many /LPF (</=FEW) Urine Bacteria Few /HPF (NONE-FEW) Urine Granular Casts Few /LPF (NONE) Urine Mucus None /HPF (NONE-FEW) EKG/Imaging EKG Interpretation 12 lead EKG: Rhythm: Normal sinus rhythm Grady: Normal QRS: Normal ST segments: Normal Monitor Interpretation: Normal Sinus Rhythm ED Course/Re-evaluation ED Course 43-year-old female presents with back pain, paresthesias and concerning complain ts including incontinence, and numbness and weakness. These complaints of been building over the past 5 days. However, on exam, she does not have objective findings that correspond to her correlate with her symptoms. Regardless, due to the potential severity of the symptoms, we discussed multiple options for evaluation. Ultimately, I elected to obtain an MRI to rule out the feared complications or impending complications that would correspond with her symptoms. MRIs ultimately did not show objective evidence of cord compression, or cauda equina. I also considered infection or neurologic diseases such as Guillain-Dickey. However, again, exam did not correlate with her correspond with these findings. Patient feels much improved on reassessment, we discussed need for close glucose control, need for stretching and management of back pain as well as stress under which patient admits she has put herself due to working hard and trying to get a promotion. She understands need for close follow-up as well as strict return precautions. Decision to Disposition Date: May 02, 2019 Decision to Disposition Time: 06:58 Depart Departure Latest Vital Signs Vital Signs Date Time Temp Pulse Resp B/P (MAP) Pulse Ox O2 Delivery O2 Flow Rate FiO2 05/02/19 06:39 120/65 (83) 05/02/19 04:05 86 91 05/02/19 01:16 97.5 15 Room Air Impression: Primary Impression: Back pain Additional Impression: Hyperglycemia Condition: Improved Disposition: HOME OR SELF-CARE Patient Instructions: Acute Low Back Pain (ED), Lower Back Exercises (ED), Upper Back Exercises (GEN) Additional Instructions: As we discussed, I recommend you stretch frequently daily. Take ibuprofen and/or tylenol as needed for pain. Work on controlling your blood sugars and follow up with your primary doctor this week to reassess your blood sugar control as well as your response to paresthesias. Return for new weakness or any concerns. Problem Qualifiers Primary Impression: Back pain Back pain location: low back pain Chronicity: acute Back pain laterality: bilateral Sciatica presence: without sciatica Qualified Codes: M54.5 - Low back pain JOSÉ LUIS REHMAN MD May 02, 2019 02:27
[2019-05-02 02:49] LABS: PLATELET COUNT, AUTOMATED 163 K/uL (150-450)
--- NOTE | 2019-05-02 03:29 | RADIOLOGY IMAGING REPORT ---
FACILITY: [facility] - [place] PATIENT NAME: Peg Dixon : 1975 MR: [id number] V: [id number] EXAM DATE: ORDERING PHYSICIAN: JOSÉ LUIS REHMAN TECHNOLOGIST: Location: [facility] - [place] Patient: Peg Dixon : 1975 Visit/Account:[id number] Date of Sevice: 05/02/2019 AP CHEST 05/02/2019 2:19 AM. INDICATION: Dyspnea. COMPARISON: 01/13/2017. FINDINGS: Lungs are well-expanded. There is no consolidation. No pleural effusion or pneumothorax. Heart size i s normal. Unchanged rightward curvature of the thoracic spine IMPRESSION: No acute abnormality or significant change. Report Dictated By: Les West MD at 05/02/2019 3:23 AM Report E-Signed By: Les West MD at 05/02/2019 3:24 AM WSN:[id number]
--- NOTE | 2019-05-02 03:34 | RADIOLOGY IMAGING REPORT ---
[place] [facility] [place]IENT NAME: Peg Dixon : 1975 MR: [id number] V: [id number] EXAM DATE: ORDERING PHYSICIAN: JOSÉ LUIS REHMAN TECHNOLOGIST: Location: [facility] - [place] Patient: Peg Dixon : 1975 Visit/Account:[id number] Date of Sevice: 05/02/2019 CT Head without contrast Indication: Headache, paresthesias, incontinence. Comparison: None available. Technique: Axial CT images were obtained through the brain from the skull base to the vertex without administration of IV contrast. One of the following dose optimization techniques was utilized in th e performance of this exam: Automated exposure control; adjustment of the mA and/or kV according to t he patient's size; or use of an iterative reconstruction technique. Specific details can be referen tho in the facility's radiology CT exam operational policy. Findings: No evidence of mass, mass effect, or midline shift. No acute intracranial hemorrhage or acute territorial infarction. Skull is nonacute. Globes and orbits are normal. The visualized paranasal sinuses and mastoid air spaces are clear. IMPRESSION: No acute intracranial abnormality. Report Dictated By: Les West MD at 05/02/2019 3:24 AM Report E-Signed By: Les West MD at 05/02/2019 3:29 AM WSN:[id number]
[2019-05-02] MEDS ORDERED: DIAZEPAM 5 MG TAB PO ONE (03:45)
[2019-05-02] MEDS ORDERED: KETOROLAC 15 MG/ML VIAL IVP ONE (04:40)
--- NOTE | 2019-05-02 05:50 | RADIOLOGY IMAGING REPORT ---
FACILITY: [facility] - [place] PATIENT NAME: Peg Dixon : 1975 MR: [id number] V: [id number] EXAM DATE: ORDERING PHYSICIAN: JOSÉ LUIS REHMAN TECHNOLOGIST: Location: [facility] - [place] Patient: Peg Dixon : 1975 Visit/Account:[id number] Date of Sevice: 05/02/2019 EXAMINATION: MR SPINE CERVICAL W/O CON INDICATION: Weakness, incontinence, paresthesia COMPARISON: None available TECHNIQUE: Multiplane MR imaging was performed through the cervical spine without contrast. FINDINGS: Vertebral bodies and posterior elements: Normal Cord signal: Normal Marrow signal: Mild degenerative edema surrounds the C5-6 disc space. Prevertebral and paraspinal soft tissues: Normal C2-3: Congenitally partially fused disc space. No disc protrusion or canal narrowing. Normal foramen. C3-4: Uncovertebral arthropathy, minimal left posterior disc protrusion. Congenitally narrowed canal. Mild canal narrowing. Moderate bilateral foraminal narrowing. C4-5: Mild right foraminal narrowing, otherwise normal. C5-6: Uncovertebral arthropathy and small disc protrusion. No significant canal narrowing. Mild bilat eral foraminal narrowing. C6-7: Uncovertebral arthropathy and minimal disc protrusion. Ligamentum flavum thickening. Minimal to mild canal narrowing. Normal foramen. C7-T1: Mild right foraminal narrowing, otherwise normal. IMPRESSION: 1. No acute finding. 2. No cord edema. 3. Multilevel uncovertebral arthropathy most pronounced at C3-4. 4. Mild C3-4 and minimal to mild C6-7 canal narrowing secondary to the constellation of findings desc ribed above. 5. Multilevel foraminal narrowing most pronounced at C3-4, see comments above. Report Dictated By: Aiden Guadalupe MD at 05/02/2019 5:38 AM Report E-Signed By: Aiden Guadalupe MD at 05/02/2019 5:45 AM WSN:[id number]
--- NOTE | 2019-05-02 06:08 | RADIOLOGY IMAGING REPORT ---
FACILITY: [facility] PATIENT NAME: Peg Dixon : 1975 MR: [id number] V: [id number] EXAM DATE: ORDERING PHYSICIAN: JOSÉ LUIS REHMAN TECHNOLOGIST: Location: [facility] - [place] Patient: Peg Dixon : 1975 Visit/Account:[id number] Date of Sevice: 05/02/2019 Examination: MR brain without contrast History: Weakness, incontinence, paresthesias Comparison: Head CT same day Technique: Multiplane MR imaging was performed through the brain without contrast. Findings: Diffusion: None Ventricles: Normal Midline shift: None Extraaxial fluid: None. Midline craniocervical structures: Normal Parenchyma: Normal Vascular flow voids: Normal Orbits and paranasal sinuses: Normal Other: No significant additional finding. Impression: Normal non-contrast brain MR. Report Dictated By: Aiden Guadalupe MD at 05/02/2019 5:57 AM Report E-Signed By: Aiden Guadalupe MD at 05/02/2019 6:01 AM WSN:[id number]
--- NOTE | 2019-05-02 06:31 | RADIOLOGY IMAGING REPORT ---
FACILITY: [facility] - [place] PATIENT NAME: Peg Dixon : 1975 MR: [id number] V: [id number] EXAM DATE: ORDERING PHYSICIAN: JOSÉ LUIS REHMAN TECHNOLOGIST: [facility] Patient: Peg Dixon : 1975 Visit/Account:[id number] Date of Sevice: 05/02/2019 ADDENDUM #1 ADDENDUM: Mild convexity right scoliosis also noted. Report Dictated By: Aiden Guadalupe MD at 05/02/2019 6:52 AM Report E-Signed By: Aiden Guadalupe MD at 05/02/2019 6:52 AM ORIGINAL REPORT MR SPINE THORACIC W/O CON INDICATION: Weakness, incontinence, paresthesias, pain COMPARISON: None TECHNIQUE: Multiplane noncontrast MR imaging performed through the thoracic spine. FINDINGS: Normal vertebral body and disc space heights. Mild convexity right scoliosis. Otherwise unremarkable alignment. Normal cord signal. No disc protrusion or canal narrowing. Anterior endplate spurring at a few levels with preservation o f disc space heights. Minimal degenerative marrow edema surrounds the T5-6, T9-10 and T10-11 disc spa timothy. The visible extraspinal structures are normal. Mild T3-4 through T5-6 facet arthropathy. Mild degenerative edema within the bilateral T3 articular p illars and T3 spinous process related to the facet arthropathy. Mild left T4 articular pillar and min imal bilateral T5 articular pillar degenerative marrow edema related to the facet arthropathy. Benign small subchondral cysts noted within the bilateral T4 articular pillars. Mild left T8-9 foraminal narrowing. Otherwise unremarkable foramen. IMPRESSION: 1. No acute finding. 2. No cord signal abnormality or canal narrowing. 3. Mild T3-4 through T5-6 facet arthropathy. 4. Minimal multilevel disc space degeneration. Report Dictated By: Aiden Guadalupe MD at 05/02/2019 6:14 AM Report E-Signed By: Aiden Guadalupe MD at 05/02/2019 6:25 AM WSN:[id number]
[2019-05-02 06:39] VITALS: BP 120/65
--- NOTE | 2019-05-02 06:50 | RADIOLOGY IMAGING REPORT ---
FACILITY: [facility] PATIENT NAME: Peg Dixon : 1975 MR: [id number] V: [id number] EXAM DATE: ORDERING PHYSICIAN: JOSÉ LUIS REHMAN TECHNOLOGIST: Location: [facility] Patient: Peg Dixon : 1975 Visit/Account:[id number] Date of Sevice: 05/02/2019 EXAMINATION: MR SPINE LUMBAR W/O CON INDICATION: Weakness, incontinence, paresthesias, back pain COMPARISON: None available TECHNIQUE: Multiplane MR imaging was performed through the lumbar spine without contrast. FINDINGS: Vertebral bodies and posterior elements: Normal Conus position/signal: Normal Marrow signal: Minimal degenerative edema surrounds the L3-4 and L5-S1 disc spaces. Extraspinal structures including psoas muscles/paraspinal soft tissues: Normal L1-2: Normal L2-3: Normal. L3-4: Minimal facet arthropathy, otherwise normal. L4-5: Minimal facet arthropathy, mild left foraminal narrowing, otherwise normal. L5-S1: Disc desiccation, mild to moderate disc space degeneration, slight retrolisthesis of L5 on S1. Small disc protrusion. Mild left and slight right lateral recess narrowing. Moderate left greater th an right foraminal narrowing. IMPRESSION: 1. No acute finding. 2. Mild to moderate L5-S1 disc space degeneration. Slight retrolisthesis of L5 on S1. 3. Mild left and slight right L5-S1 lateral recess narrowing secondary to the constellation of findin gs described above. 4. L4-5 and L5-S1 foraminal narrowing, see comments above. Report Dictated By: Aiden Guadalupe MD at 05/02/2019 6:38 AM Report E-Signed By: Aiden Guadalupe MD at 05/02/2019 6:45 AM WSN:[id number]
--- NOTE | 2019-05-03 10:22 | EKG ---
FACILITY: [facility] - [place] PATIENT NAME: GOLD GARDINER : [id number] MR: [id number] V: [id number] EXAM DATE: ORDERING PHYSICIAN: JOSÉ LUIS REHMAN TECHNOLOGIST: BO Test Reason : DYSPNEA Blood Pressure : / mmHG Vent. Rate : 093 BPM Atrial Rate : 093 BPM P-R Int : 142 ms QRS Dur : 084 ms QT Int : 346 ms P-R-T Axes : 074 062 052 degrees QTc Int : 430 ms Normal sinus rhythm Normal ECG No previous ECGs available Confirmed by CARMEN RICE ([id number]) on 05/03/2019 12:43:46 PM Referred By: Confirmed By:CARMEN RICE
== END 2019-05-02 07:06 | disposition home or self-care (01) ==
LOC: ER 01:20
DX: M54.5 Low back pain (principal); R73.9 Hyperglycemia, unspecified
CPT/HCPCS: 70450; 70551; 71045; 72141; 72146; 72148; 81001; 83735; 84100; 84443; 85025; 93005; 96374; 96375; 99284; J1885; J2270; 82040; 82247; 82310; 82374; 82435; 82565; 82947; 84075; 84132; 84155; 84295; 84450; 84460; 84520

== ENCOUNTER 2019-06-08 16:00 | Emergency (ER) | payer SELFPAY ==
[2018-06-03 11:58] VITALS: Wt 106.6 kg
[~2019-06-08 16:00] MED LIST changes: +DULO30CA35 PO
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
[2019-06-08] MEDS ORDERED: CLIN300C99 PO (16:54)
[2019-06-08] MEDS ORDERED: DOXY-179 PO (16:54)
[2019-06-08] MEDS ORDERED: HYDR-385 PO (16:54)
[2019-06-08 17:11] VITALS: BP 142/85
== END 2019-06-08 17:12 | disposition home or self-care (01) ==
LOC: ER 16:18
DX: K04.7 Periapical abscess without sinus (principal)
CPT/HCPCS: 99281